=== PATIENT | female | born 1955 | race American Indian/Alaskan Native ===

== ENCOUNTER 2016-09-06 17:48 | Emergency (ER) | payer SELFPAY ==
[2016-09-06 18:36] LABS: Basophils % (Auto) 0.6 % (0.0-1.8); Eosinophils % (Auto) 1.7 % (0.0-4.3); Hematocrit 39.8 % (30.3-42.9); Mean Corpuscular HGB Conc 33 % (30-34); Mean Corpuscular Hemoglobin 27 pg (28-32); Mean Corpuscular Volume 84 fl (79-97); Platelet Count 233 K/mm3 (140-440); Red Blood Count 4.77 M/mm3 (3.65-5.03); Red Cell Distribution Width 14.4 % (13.2-15.2); White Blood Count 9.4 K/mm3 (4.5-11.0)
[2016-09-06 19:24] LABS: Alanine Aminotransferase 23 units/L (7-56); Albumin 3.6 g/dL (3.9-5); Albumin/Globulin Ratio 0.9 %; Alkaline Phosphatase 39 units/L (35-129); Anion Gap 18 mmol/L; Blood Urea Nitrogen 16 mg/dL (7-17); Calcium 9.1 mg/dL (8.4-10.2); Carbon Dioxide 23 mmol/L (22-30); Chloride 100.2 mmol/L (98-107); Glucose 103 mg/dL (65-100); Potassium 4.3 mmol/L (3.6-5.0); Sodium 137 mmol/L (137-145); Total Protein 7.6 g/dL (6.3-8.2)
--- NOTE | 2016-09-06 21:04 | Emergency Department Report ---
HPI - General Chief Complaint: Chest Pain Time Seen by Provider: 09/06/16 20:11 - HPI HPI: This is a 61-year-old Afro-[place] Irish female presents to the emergency department from [facility] for evaluation of a 2-3 day history of palpitations. The patient also has been having some pain to the left side of her neck and the top of the shoulder over the past 1-1.5 weeks. She denies any actual chest pain , shortness of breath, nausea, vomiting, fever or diaphoresis. Patient says that sometimes the neck and shoulder pain worsens with movement of her head and her primary care physician, Dr. Gee, thinks it could be musculoskeletal. However she was sent in for a "EKG and labs" as they do not do that at [facility]. The patient has a past medical history of arthritis, diabetes, hypertension, hepatitis C. No recent travel or sick contacts at home. ED Past Medical Hx - Past Medical History Previous Medical History?: Yes Hx Hypertension: Yes Hx Diabetes: Yes Hx Arthritis: Yes Hx Psychiatric Treatment: Yes (depression, Anxiety) Additional medical history: Hepatitis C - Surgical History Past Surgical History?: Yes Additional Surgical History: left ovary removed, Hx. of ETOH abuse - Social History Smoking Status: Current Every Day Smoker Substance Use Type: Prescribed ED Review of Systems ROS: Stated complaint: HEART PALPITATIONS,SHOULDER/CP Other details as noted in HPI Comment: All other systems reviewed and negative Constitutional: denies: chills, fever Eyes: denies: eye pain, eye discharge, vision change ENT: denies: ear pain, throat pain Respiratory: denies: cough, shortness of breath, wheezing Cardiovascular: palpitations. denies: edema Gastrointestinal: denies: abdominal pain, nausea, diarrhea Genitourinary: denies: urgency, dysuria, discharge Musculoskeletal: arthralgia. denies: joint swelling Skin: denies: rash, lesions Neurological: denies: headache, weakness, paresthesias Physical Exam - Physical Exam Vital Signs: Vital Signs 09/06/16 09/06/16 09/06/16 18:02 20:11 20:12 Temperature 97.9 F Pulse Rate 70 76 Respiratory 20 20 10 L Rate Blood Pressure 140/84 Blood Pressure [Left] O2 Sat by Pulse 100 100 Oximetry 06/01/17 06/01/17 06/01/17 20:20 20:24 20:30 Temperature 98.2 F Pulse Rate 74 79 75 Respiratory 12 11 L 10 L Rate Blood Pressure 131/78 133/74 Blood Pressure 127/70 [Left] O2 Sat by Pulse 99 98 100 Oximetry Physical Exam: GENERAL: The patient is well-developed well-nourished. HEENT: Normocephalic. Atraumatic. Extraocular motions are intact. Patient has moist mucous membranes. Pupils equal reactive to light bilaterally. NECK: Supple. Trachea is midline. CHEST/LUNGS: Clear to auscultation. There is no respiratory distress noted. HEART/CARDIOVASCULAR: Regular. There is no tachycardia. There is no gallop rub or murmur. ABDOMEN: Abdomen is soft, nontender. Patient has normal bowel sounds. There is no abdominal distention. SKIN: Skin is warm and dry. NEURO: The patient is awake, alert, and oriented. The patient is cooperative. The patient has no focal neurologic deficits. The patient has normal speech. MUSCULOSKELETAL: There is no tenderness or deformity. There is no limitation range of motion. There is no evidence of acute injury. ED Course Vital Signs 09/06/16 09/06/16 09/06/16 18:02 20:11 20:12 Temperature 97.9 F Pulse Rate 70 76 Respiratory 20 20 10 L Rate Blood Pressure 140/84 Blood Pressure [Left] O2 Sat by Pulse 100 100 Oximetry 09/06/16 09/06/16 09/06/16 20:20 20:24 20:30 Temperature 98.2 F Pulse Rate 74 79 75 Respiratory 12 11 L 10 L Rate Blood Pressure 131/78 133/74 Blood Pressure 127/70 [Left] O2 Sat by Pulse 99 98 100 Oximetry ED Medical Decision Making - Lab Data Result diagrams: 09/06/16 18:11 09/06/16 18:11 - EKG Data -: EKG Interpreted by [facility] EKG shows normal: sinus rhythm (sinus arrhythmia), axis (left axis deviation), intervals, QRS complexes (LVH), ST-T waves Rate: normal - EKG Data Interpretation: other (sinus arrhythmia, LVH) - Radiology Data Radiology results: report reviewed - Medical Decision Making 61-year-old female presents to the emergency department after she was sent over by her PCP for labs and EKG due to a few days of palpitations and some pain to the left side of the neck and shoulder. In the emergency department the patient does not currently have any of the pain and only intermittent palpitations. EKG does not show any signs of ST elevation KS or dysrhythmia. Her labs are mostly unremarkable including negative troponins 2. She has normal thyroid function. There are no joint abnormalities or sign of infection. She did have a elevated and equivocal d-dimer so a CT angiography of the chest was done. However this did not result in any pulmonary embolism, dissection or any acute process. The patient is been reevaluated multiple times for multiple hours and is feeling better. She did have one episode of anxiety that required some Ativan to be given but she also recently was diagnosed with an anxiety disorder and started on anxiety medications by her PCP. Vital signs stable throughout her ED course. Given that the fact that the patient does not have any discomfort currently, has had a negative workup thus far, the patient appears safe for discharge home. She'll be given a referral for cardiology to follow up regarding her palpitations and for a possible outpatient stress test. She will return to the ER with any worsening of her symptoms or any acute distress. She has a MALCOLM score less than 1. She is low on the heart score criteria. - Differential Diagnosis hypothyroidism, PE, [place] Critical Care Time: No Critical care attestation.: If time is entered above; I have spent that time in minutes in the direct care of this critically ill patient, excluding procedure time. ED Disposition Clinical Impression: Palpitations Disposition: DISCHARGED TO HOME OR SELFCARE Is pt being admited?: No Condition: Stable Instructions: Palpitations (ED) Additional Instructions: Please follow-up with your primary care doctor in the next few days. I've given you a referral for a local cripple cutter, Dr. Lechuga, to follow-up regarding her palpitations. Return to the emergency department with any chest pain, shortness of breath, worsening of her symptoms, or any acute distress. Referrals: AUSTIN WALKER MD [Primary Care Provider] - 3-5 Days ALEENA LECHUGA MD [Staff Physician] - 3-5 Days Time of Disposition: 23:54
[2016-09-06] MEDS ORDERED: NACL ONE (22:16)
[2016-09-06] MEDS ORDERED: ATIVAN ONE (22:20)
[2016-09-06] MEDS ORDERED: ATIVAN IV ONE (22:21)
[2016-09-06] MEDS ORDERED: NACL 0.9% 1000 ML 0 ML ONE (22:48)
--- NOTE | 2016-09-06 23:21 | Cat Scan Report ---
FINAL REPORT PROCEDURE: CT ANGIO CHEST TECHNIQUE: Computerized axial tomographic angiography of the chest and pulmonary arteries was performed after the IV injection of iodinated nonionic contrast. The image data was postprocessed using maximum intensity projection (MIP) and 2-dimensional multiplanar reformatted (MPR) techniques. The examination is specifically tailored to the evaluation of the pulmonary arteries per clinical request. HISTORY: Short of breath 786.09, chest pain 786.50, Palpitations, Elevated dimer COMPARISON: No prior studies are available for comparison. FINDINGS: Heart and pericardium: Heart size is normal. There is a small pericardial effusion.. Thoracic aorta: There is calcified plaque in the thoracic aorta. There is no dissection or aneurysm. 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 Pulmonary vasculature: Normal. No pulmonary emboli. Lymph nodes: No enlarged thoracic lymph nodes. Lungs: Lungs are clear and expanded. There are no infiltrates, effusions or pneumothoraces. There are fibrotic changes at the lung bases.. Pleural space: No effusion, thickening, or pneumothorax. Musculoskeletal structures: No significant abnormality. Upper abdominal structures: No significant abnormality. IMPRESSION: There is no pulmonary embolism. Heart size is normal. There is a small pericardial effusion.. There is calcified plaque in the thoracic aorta. There is no dissection or aneurysm. 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 Lungs are clear and expanded. There are no infiltrates, effusions or pneumothoraces. There are fibrotic changes at the lung bases.. .
[2016-09-06 23:59] VITALS: BP 138/81
== END 2016-09-07 00:04 | disposition home or self-care (01) ==
LOC: ED 17:48
DX: R00.2 Palpitations (principal); I10 Essential (primary) hypertension; E11.9 Type 2 diabetes mellitus without complications; M19.90 Unspecified osteoarthritis, unspecified site; F32.9 Major depressive disorder, single episode, unspecified; F41.9 Anxiety disorder, unspecified; Z86.19 Personal history of other infectious and parasitic diseases; F17.200 Nicotine dependence, unspecified, uncomplicated
CPT/HCPCS: 36415; 71275; 80053; 82962; 84443; 84484; 85025; 85379; 93005; 93010; 96374; 99285; J2060; Q9967; J7030

== ENCOUNTER 2019-08-10 19:04 | Inpatient (IN) | payer MEDICARE ==
--- NOTE | 2019-08-10 19:13 | Emergency Department Report ---
HPI - General Time Seen by Provider: 08/10/19 19:04 - HPI HPI: 64-year-old female presents to the emergency department from home via EMS as a code stroke. Last known well time was about 10:30 AM this morning. However this patient has been napping off and on throughout the day and the patient's family noticed some strokelike symptoms just prior to presentation and called 911. She presents with some right-sided weakness, slurred speech and what appears to be a right-sided facial droop. She has a past medical history of hypertension, diabetes and hepatitis C that was obtained from records from 2017. Patient did not receive anything in route with EMS. ED Past Medical Hx - Past Medical History Hx Hypertension: Yes Hx Diabetes: Yes Hx Arthritis: Yes Hx Psychiatric Treatment: Yes (depression, Anxiety) Additional medical history: Hepatitis C - Surgical History Additional Surgical History: left ovary removed, Hx. of ETOH abuse - Social History Smoking Status: Current Every Day Smoker Substance Use Type: Prescribed - Medications Home Medications: Home Medications Medication Instructions Recorded Confirmed Last Taken Type Unobtainable 08/10/19 08/10/19 Unknown History ED Review of Systems ROS: Stated complaint: POSS CVA Other details as noted in HPI Comment: Unobtainable due to pts medical conditions Constitutional: weakness Neurological: weakness ED Course - Consultations Consultation #1: 08/10/19 19:32 Patient was seen by the telemedicine neurologist, Dr. Hickey, immediately upon return from CT imaging. Due to the last known well time being sometime this morning the patient is not a TPA candidate. However she has a elevated NIH stroke scale and concern for a left hemispheric stroke so the patient will have stat CT angiography studies of the head and neck. ED Medical Decision Making - Lab Data Result diagrams: 08/10/19 19:15 08/10/19 19:15 - Radiology Data Radiology results: report reviewed CT HEAD WITHOUT CONTRAST INDICATION / CLINICAL INFORMATION: neuro deficits <6hrs or sx present upon awakening. Aphasia, right-sided weakness, right-sided facial droop. TECHNIQUE: All CT scans at this location are performed using CT dose reduction for ALARA by means of automated exposure control. COMPARISON: None available. FINDINGS: HEMORRHAGE: No evidence of intracranial hemorrhage or extra-axial fluid collection. EXTRA-AXIAL SPACES: Cortical sulci, sylvian fissures and basilar cisterns have an unremarkable appearance. VENTRICULAR SYSTEM: Persistence of the cava septum pellucidum and cavum therapy is incidentally noted. The ventricular system is of otherwise normal size and configuration. CEREBRAL PARENCHYMA: Periventricular and deep white matter lucency are noted in both cerebral hemispheres consistent with microvascular ischemic change. No additional areas of abnormal brain parenchymal attenuation are identified. There is no indication of recent infarction. No areas of encephalomalacia are identified. MIDLINE SHIFT OR HERNIATION: There is no mass effect. CEREBELLUM / BRAINSTEM: Brainstem and cerebellum have an unremarkable appearance. INTRACRANIAL VESSELS: Calcified atherosclerotic plaque is seen along the course of the cavernous segments of both internal carotid arteries. Similar findings are seen at the distal vertebral arteries. ORBITS: The patient's gaze is deviated towards the left. Orbits have an otherwise unremarkable appearance. SOFT TISSUES of HEAD: No significant abnormality. CALVARIUM: Evaluation of bone windows reveals no abnormalities. PARANASAL SINUSES / MASTOID AIR CELLS: Par anasal sinuses are free from inflammatory mucosal disease. Mastoid air cells are normally pneumatized. IMPRESSION: 1. No acute intracranial abnormality on CT head without contrast.. CTA head with intravenous contrast CLINICAL HISTORY: stroke TECHNIQUE: 1.25 mm thick contiguous axial scans were obtained from the skull base to the skull vertex during rapid bolus administration of intravenous contrast material. Multiplanar reconstructions were produced in the coronal and sagittal planes. In addition 3 plane MIP instructions were produced and reviewed for this report. The axial source images and reconstructed images were reviewed for this report. CONTRAST DOSE REPORT: Omnipaque 350: 100 ml administered intravenously. All CT scans at this location are performed using CT dose reduction for ALARA by means of automated exposure control. FINDINGS: Internal carotid arteries:Ossified atherosclerotic plaque is observed along the course of the cavernous segments of both internal carotid arteries. Mee, cavernous, opthalmic, clinoid and supraclinoid segments of the ICAs have an otherwise unremarkable appearance. Middle cerebral arteries: Bilaterally symmetrical M1 segments are demonstrated. No abnormalities are seen on evaluation of the insular or opercular branches of the middle cerebral arteries. Anterior cerebral arteries: No abnormalities are seen along the course of the A1 or A2 segments of the anterior cerebral arteries. Visualized pericallosal branches have an unremarkable appearance. Vertebral arteries: Left vertebral artery is dominant. Both vertebral arteries contribute to the basilar artery origin. Basilar artery: Basilar artery has an unremarkable appearance. Posterior cerebral arteries:No abnormalities. Dural sinuses: Dural venous sinuses are well demonstrated on this exam. There is no evidence of dural sinus thrombosis. IMPRESSION: No significant abnormalities identified on CTA head. CTA neck without and with intravenous contrast material CLINICAL HISTORY: stroke. A aphasia. Right-sided weakness and right facial droop. TECHNIQUE: Following acquisition of a timing bolus 0.625 mm thick contiguous axial scans were obtained from aortic arch to the skull base during rapid bolus intravenous contrast infusion. In addition to evaluation of axial source images multiplanar reconstructions were produced and reviewed for this report. 3 plane MIP reconstructions were produced and reviewed. Contrast dose report: Omnipaque 350: 100 mL distribution intravenously. FINDINGS: Thoracic aorta:No abnormalities are identified along the course of the thoracic aorta..The origins of the great vessels have an unremarkable appearance. Left common carotid artery origin and left subclavian artery have an unremarkable appearance. 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 Right carotid arter y:No abnormalities are seen along the course of the RCCA or along the cervical portions of the RANJIT. Calcified atherosclerotic plaque is seen at the right carotid bifurcation with no indication of stenosis. Left carotid artery: No abnormalities are noted along the course of the left common carotid artery or along the course of the cervical segments of the LICA. Calcified atherosclerotic plaque is present at the left carotid bifurcation. There is no associated stenosis. Posterior circulation: Left vertebral artery is dominant. There is no indication of stenosis along the course the vertebral arteries. The degree of stenosis, if any, is determined utilizing NASCET like criteria. In this case t here is no indication of hemodynamically significant stenosis at the carotid bifurcations or elsewhere. Evaluation of the nonvascular soft tissue structures reveal no abnormality. There is no indication of cervical lymphadenopathy. No abnormalities are seen along the course of the airway. Visualized portions of the parotid glands and the submandibular salivary glands have a normal appearance. Thyroid gland has a normal appearance. Evaluation of the lung apices reveals no evidence of lung nodule or infiltrate. Evaluation of the cervical spine is remarkable for widespread cervical spondylosis with loss of disc height, anterior osteophyte and posterior osteophyte formation noted at multiple levels. IMPRESSION: 1. 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 2. No indication of hemodynamically significant stenosis at the carotid bifurcations or elsewhere. - Medical Decision Making This patient presents to the emergency department with some dysarthria, right- sided facial droop and right-sided weakness. A code stroke was initiated the patient went straight back for a CT scan of the head without contrast. CT head did not show any acute bleed, ischemic changes, or any other acute process. She was seen by the telemedicine neurologist but the patient is outside of the window for TPA. She was sent right back for CT angiography of the head and neck which ultimately did not show any signs of a large vessel occlusion. Labs have been mostly unremarkable. Patient does have significant elevated blood pressure and has been given some IV antihypertensive medication. She was given a NIH stroke scale of 14 by the telemedicine neurologist. She will be admitted to the hospital for further evaluation and treatment and was accepted for admission by the hospitalist, Dr. Cho. Critical Care Time: Yes Critical care time in (mins) excluding proc time.: 35 Critical care attestation.: If time is entered above; I have spent that time in minutes in the direct care of this critically ill patient, excluding procedure time. Due to the immediate potential for life-threatening deterioration due to underlying neurologic condition, I spent 35 minutes of critical care time with the patient. Critical Care Time: 35 minutes ED Disposition Clinical Impression: Hypertensive urgency Stroke Qualifiers: CVA mechanism: unspecified Qualified Code(s): I63.9 - Cerebral infarction, unspecified Disposition: DC-09 OP ADMIT IP TO THIS HOSP Is pt being admited?: Yes Condition: Serious Referrals: PRIMARY CARE, [Primary Care Provider] - 3-5 Days Time of Disposition: 22:19
[2019-08-10 19:30] LABS: Basophils % (Auto) 0.4 % (0.0-1.8); Eosinophils % (Auto) 0.5 % (0.0-4.3); Hemoglobin 13.5 gm/dl (10.1-14.3); Lymphocytes # (Auto) 2.8 K/mm3 (1.2-5.4); Lymphocytes % (Auto) 31.4 % (13.4-35.0); Mean Corpuscular HGB Conc 33 % (30-34); Mean Corpuscular Volume 83 fl (79-97); Monocytes # (Auto) 0.5 K/mm3 (0.0-0.8); Monocytes % (Auto) 5.2 % (0.0-7.3); Platelet Count 267 K/mm3 (140-440); Red Blood Count 4.92 M/mm3 (3.65-5.03)
--- NOTE | 2019-08-10 19:30 | Cat Scan Report ---
CT HEAD WITHOUT CONTRAST INDICATION / CLINICAL INFORMATION: neuro deficits <6hrs or sx present upon awakening. Aphasia, right-sided weakness, right-sided facial droop. TECHNIQUE: All CT scans at this location are performed using CT dose reduction for ALARA by means of automated e xposure control. COMPARISON: None available. FINDINGS: HEMORRHAGE: No evidence of intracranial hemorrhage or extra-axial fluid collection. EXTRA-AXIAL SPACES: Cortical sulci, sylvian fissures and basilar cisterns have an unremarkable appear ance. VENTRICULAR SYSTEM: Persistence of the cava septum pellucidum and cavum therapy is incidentally noted . The ventricular system is of otherwise normal size and configuration. CEREBRAL PARENCHYMA: Periventricular and deep white matter lucency are noted in both cerebral hemisph eres consistent with microvascular ischemic change. No additional areas of abnormal brain parenchymal attenuation are identified. There is no indication of recent infarction. No areas of encephalomalaci a are identified. MIDLINE SHIFT OR HERNIATION: There is no mass effect. CEREBELLUM / BRAINSTEM: Brainstem and cerebellum have an unremarkable appearance. INTRACRANIAL VESSELS: Calcified atherosclerotic plaque is seen along the course of the cavernous segm ents of both internal carotid arteries. Similar findings are seen at the distal vertebral arteries. ORBITS: The patient's gaze is deviated towards the left. Orbits have an otherwise unremarkable appear ance. SOFT TISSUES of HEAD: No significant abnormality. CALVARIUM: Evaluation of bone windows reveals no abnormalities. PARANASAL SINUSES / MASTOID AIR CELLS: Paranasal sinuses are free from inflammatory mucosal disease. Mastoid air cells are normally pneumatized. IMPRESSION: 1. No acute intracranial abnormality on CT head without contrast.. Code stroke: I called a report of this study to Dr. Shetty of the [facility] em ergency department at about 1821 hours Central standard time. Signer Name: Amado Lindsay MD Signed: 08/10/2019 7:25 PM Workstation Name: [id number]
--- NOTE | 2019-08-10 19:33 | Emergency Department Report ---
ED Neuro Deficit HPI - General Chief Complaint: Neuro Symptoms/Deficit Stated Complaint: POSS CVA Time Seen by Provider: 08/10/19 19:04 - History of Present Illness Initial Comments: [facility] Tele[facility]rology [facility] Date of Service: 08/10/2019 19:07:47 Impression: Left Hemispheric Infarct MCA Distribution Infarct Comments/Sign-Out: -Patient is not a candidate for thrombolytic therapy as time LKW was > 4.5 hours. Recommend evaluation for LVO that could be amenable to thrombectomy. Metrics: Last Known Well: 08/10/2019 10:30:00 [facility] Notification Time: 08/10/2019 19:07:14 Arrival Time: 08/10/2019 19:04:00 Stamp Time: 08/10/2019 19:07:47 Time First Login Attempt: 08/10/2019 19:09:29 Video Start Time: 08/10/2019 19:09:29 Symptoms: dysarthria. R sided weakness NIHSS Start Assessment Time: 08/10/2019 19:15:00 Patient is not a candidate for tPA. Patient was not deemed candidate for tPA thrombolytics because of Last Well Known Above 4.5 Hours. Video End Time: 08/10/2019 19:26:37 CT head showed no acute hemorrhage or acute core infarct. Clinical Presentation is Suggestive of Large Vessel Occlusive Disease, Recommendations are as Follows CTA Head and Neck. ED Physician notified of diagnostic impression and management plan on 08/10/2019 19:27:04 Our recommendations are outlined below. Recommendations: Activate Stroke Protocol Admission/Order Set Stroke/Telemetry Floor Neuro Checks Bedside Swallow Eval DVT Prophylaxis IV Fluids, Normal Saline Head of Bed 30 Degrees Euglycemia and Avoid Hyperthermia (PRN Acetaminophen) No tPA. Give ASA. STAT CTA head/neck r/o LVO. If L ICA or MCA LVO will need referral/transfer for thrombectomy. Permissive HTN 140-200 range systolic is OK. If no LVO admission for stroke evaluation (Brain MRI, Echo, Tele, A1c, Lipids, UDS). Sign Out: Discussed with Emergency Department Provider History of Present Illness: Patient is a 64 year old Female. Patient was brought by EMS for symptoms of dysarthria. R sided weakness LKW 10:30, this was the last time anyone spoke with her. She napped most of the day. Family thinks she was up after that, but last time anyone spoke to her was 10:30. Family later found her in bathroom with slurred speech and facial droop, unable to walk out of bathroom, called EMS. EMS reported R facial droop, dysarthria, R sided weakness has worsened en route. BP 200/100. BG 150. Examination: 1A: Level of Consciousness - Alert; keenly responsive + 0 1B: Ask Month and Age - Could Not Answer Either Question Correctly + 2 1C: Blink Eyes & Squeeze Hands - Performs Both Tasks + 0 2: Test Horizontal Extraocular Movements - Partial Gaze Palsy: Can Be Overcome + 1 3: Test Visual Lovett - Partial Hemianopia + 1 4: Test Facial Palsy (Use Grimace if Obtunded) - Partial paralysis (lower face) + 2 5A: Test Left Arm Motor Drift - No Drift for 10 Seconds + 0 5B: Test Right Arm Motor Drift - Drift, hits bed + 2 6A: Test Left Leg Motor Drift - No Drift for 5 Seconds + 0 6B: Test Right Leg Motor Drift - No Effort Against Franklin + 3 7: Test Limb Ataxia (FNF/Heel-Milner) - No Ataxia + 0 8: Test Sensation - Mild-Moderate Loss: Less Sharp/More Dull + 1 9: Test Language/Aphasia - Mild-Moderate Aphasia: Some Obvious Changes, Without Significant Limitation + 1 10: Test Dysarthria - Mild-Moderate Dysarthria: Slurring but can be understood + 1 11: Test Extinction/Inattention - No abnormality + 0 NIHSS Score: 14 Patient/Family was informed the Neurology Consult would happen via TeleHealth consult by way of interactive audio and video telecommunications and consented to receiving care in this manner. Due to the immediate potential for life-threatening deterioration due to underlying acute neurologic illness, I spent 35 minutes providing critical care. This time includes time for face to face visit via telemedicine, review of m edical records, imaging studies and discussion of findings with providers, the patient and/or family. Dr John Hickey [facility] Case [id number] - Related Data Allergies/Adverse Reactions: Allergies Allergy/AdvReac Type Severity Reaction Status Date / Time acetaminophen Allergy Shortness Verified 09/06/16 18:02 of Breath Penicillins Allergy Rash Verified 09/06/16 18:01 ED Review of Systems ROS: Stated complaint: POSS CVA Other details as noted in HPI Constitutional: weakness Neurological: weakness ED Past Medical Hx - Past Medical History Hx Hypertension: Yes Hx Diabetes: Yes Hx Arthritis: Yes Hx Psychiatric Treatment: Yes (depression, Anxiety) Additional medical history: Hepatitis C - Surgical History Additional Surgical History: left ovary removed, Hx. of ETOH abuse - Social History Smoking Status: Current Every Day Smoker Substance Use Type: Prescribed ED Neuro Physical Exam - General Suspected Stroke: Yes - NIHSS Assessment Interval: Baseline 1a. Level of Consciousness: alert/keenly responsive 1b. LOC Questions: answers no questions correctly 1c. LOC Commands: performs tasks correctly 2. Best Gaze: partial gaze palsy 3. Visual: partial hemianopia 4. Facial Palsy: partial paralysis 5b. Motor Arm Right: some gravity effort 5a. Motor Arm Left: no drift 6a. Motor Leg Left: no drift 6b. Motor Leg Right: no gravity effort 7. Limb Ataxia: absent 8. Sensory: mild/moderate sensory loss 9. Best Language: mild/moderate aphasia 10. Dysarthria: mild/moderate dysarthria 11. Extinction/Inattention: no abnormality Total Score: 14 Stroke Severity: Moderate Stroke - Lab Data Result diagrams: 08/10/19 19:15 Lab Results 08/10/19 Range/Units 19:15 WBC 9.0 (4.5-11.0) K/mm3 RBC 4.92 (3.65-5.03) M/mm3 Hgb 13.5 (10.1-14.3) gm/dl Hct 41.0 (30.3-42.9) % MCV 83 (79-97) fl MCH 27 L (28-32) pg MCHC 33 (30-34) % RDW 15.0 (13.2-15.2) % Plt Count 267 (140-440) K/mm3 Lymph % (Auto) 31.4 (13.4-35.0) % [place] % (Auto) 5.2 (0.0-7.3) % Eos % (Auto) 0.5 (0.0-4.3) % Baso % (Auto) 0.4 (0.0-1.8) % Lymph # 2.8 (1.2-5.4) K/mm3 [place] # 0.5 (0.0-0.8) K/mm3 Eos # 0.0 (0.0-0.4) K/mm3 Baso # 0.0 (0.0-0.1) K/mm3 Seg Neutrophils % 62.5 (40.0-70.0) % Seg Neutrophils # 5.6 (1.8-7.7) K/mm3 Critical care attestation.: If time is entered above; I have spent that time in minutes in the direct care of this critically ill patient, excluding procedure time. ED Disposition Clinical Impression: Stroke Disposition: - OP ADMIT IP TO THIS HOSP Is pt being admited?: Yes Condition: Stable Referrals: PRIMARY CARE, [Primary Care Provider] - 3-5 Days
[2019-08-10 19:46] LABS: Creatine Kinase MB 1.5 ng/mL (0.0-4.0)
[2019-08-10 19:48] LABS: Alanine Aminotransferase 17 units/L (7-56); Albumin 2.8 g/dL (3.9-5); BUN/Creatinine Ratio 15; Blood Urea Nitrogen 15 mg/dL (7-17); Hemolysis Index 5
[2019-08-10 20:00] LABS: INR 0.95 (0.87-1.13); Partial Thromboplastin Time 24.5 Sec. (24.2-36.6)
[2019-08-10 20:01] LABS: Thrombin Time 18.6 Sec. (15.1-19.6)
--- NOTE | 2019-08-10 21:13 | Cat Scan Report ---
CTA head with intravenous contrast CLINICAL HISTORY: stroke TECHNIQUE: 1.25 mm thick contiguous axial scans were obtained from the skull base to the skull vertex during rap id bolus administration of intravenous contrast material. Multiplanar reconstructions were produced i n the coronal and sagittal planes. In addition 3 plane MIP instructions were produced and reviewed fo r this report. The axial source images and reconstructed images were reviewed for this report. CONTRAST DOSE REPORT: Omnipaque 350: 100 ml administered intravenously. All CT scans at this location are performed using CT dose reduction for ALARA by means of automated e xposure control. FINDINGS: Internal carotid arteries:Ossified atherosclerotic plaque is observed along the course of the caverno us segments of both internal carotid arteries. Mee, cavernous, opthalmic, clinoid and supraclinoid segments of the ICAs have an otherwise unremarkable appearance. Middle cerebral arteries: Bilaterally symmetrical M1 segments are demonstrated. No abnormalities are seen on evaluation of the insular or opercular branches of the middle cerebral arteries. Anterior cerebral arteries: No abnormalities are seen along the course of the A1 or A2 segments of th e anterior cerebral arteries. Visualized pericallosal branches have an unremarkable appearance. Vertebral arteries: Left vertebral artery is dominant. Both vertebral arteries contribute to the basi lar artery origin. Basilar artery: Basilar artery has an unremarkable appearance. Posterior cerebral arteries:No abnormalities. Dural sinuses: Dural venous sinuses are well demonstrated on this exam. There is no evidence of dural sinus thrombosis. IMPRESSION: No significant abnormalities identified on CTA head. Signer Name: Amado Lindsay MD Signed: 08/10/2019 9:08 PM Workstation Name: [id number]
[2019-08-10] MEDS ORDERED: hydrALAZINE 20 MG/1 ML INJ IV ONE ×2 (21:22→22:14)
--- NOTE | 2019-08-10 21:22 | Cat Scan Report ---
CTA neck without and with intravenous contrast material CLINICAL HISTORY: stroke. A aphasia. Right-sided weakness and right facial droop. TECHNIQUE: Following acquisition of a timing bolus 0.625 mm thick contiguous axial scans were obtained from aort ic arch to the skull base during rapid bolus intravenous contrast infusion. In addition to evaluation of axial source images multiplanar reconstructions were produced and reviewed for this report. 3 daksha ne MIP reconstructions were produced and reviewed. Contrast dose report: Omnipaque 350: 100 mL distribution intravenously. FINDINGS: Thoracic aorta:No abnormalities are identified along the course of the thoracic aorta..The origins of the great vessels have an unremarkable appearance. Left common carotid artery origin and left subcla vian artery have an unremarkable appearance. 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 Right carotid artery:No abnormalities are seen along the course of the RCCA or along the cervical por tions of the RANJIT. Calcified atherosclerotic plaque is seen at the right carotid bifurcation with no indication of stenosis. Left carotid artery: No abnormalities are noted along the course of the left common carotid artery or along the course of the cervical segments of the LICA. Calcified atherosclerotic plaque is present a t the left carotid bifurcation. There is no associated stenosis. Posterior circulation: Left vertebral artery is dominant. There is no indication of stenosis along th e course the vertebral arteries. The degree of stenosis, if any, is determined utilizing NASCET like criteria. In this case there is no indication of hemodynamically significant stenosis at the carotid bifurcations or elsewhere. Evaluation of the nonvascular soft tissue structures reveal no abnormality. There is no indication of cervical lymphadenopathy. No abnormalities are seen along the course of the airway. Visualized porti ons of the parotid glands and the submandibular salivary glands have a normal appearance. Thyroid gla nd has a normal appearance. Evaluation of the lung apices reveals no evidence of lung nodule or infil trate. Evaluation of the cervical spine is remarkable for widespread cervical spondylosis with loss of disc height, anterior osteophyte and posterior osteophyte formation noted at multiple levels. IMPRESSION: 1. 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 2. No indication of hemodynamically significant stenosis at the carotid bifurcations or elsewhere. Contrast dose report: Omnipaque 300: ml, administered intravenously All CT examinations performed at this facility utilize modulated dose reduction, iterative reconstruc tion or weight-based dosing, as appropriate, to obtain a radiation dose which is as low as can reason ably be achieved. Signer Name: Amado Lindsay MD Signed: 08/10/2019 9:18 PM Workstation Name: [id number]
[2019-08-10] MEDS ORDERED: hydrALAZINE 20 MG/1 ML INJ ONE (21:24)
[2019-08-10] MEDS ORDERED: ONDANSETRON 4 MG/2 ML INJ IV PRN (22:24)
--- NOTE | 2019-08-10 22:24 | History and Physical Report ---
History of Present Illness History of present illness: 64-year-old woman with a history of hypertension, diabetes, anxiety, depression comes emergency room for evaluation. The patient complained of right side weakness, slurred speech and twisting of her face. She has not taken any antihypertensive in the last 4 months or more. The patient came to the emergency room, she was outside the window for TPA. Patient will be admitted for acute CVA Review Of Systems: Constitutional: no weight loss, fever, chills Ears, eyes, nose, mouth and throat: no nasal congestion, no nasal discharge, no sinus pressure, blurry vision, diplopia Neck: No neck pain or rigidity. Cardiovascular: No palpitations, chest pain Respiratory: No shortness of breath, cough Gastrointestinal: No hematochezia Genitourinary : no dysuria, frequency Musculoskeletal: no muscle ache , joint pain Integumentary: no rash, no pruritis Neurological: no parathesia Endocrine: no cold or heat intolerance, no polyuria or polydipsia Hematologic/Lymphatic: no easy bruising, no easy bleeding, no gland swelling Allergic/Immunologic: no urticaria, no angioedema. PAST MEDICAL HISTORY: hypertension, diabetes, anxiety, depression PAST SURGICAL HISTORY: Oophorectomy SOCIAL HISTORY: Denies alcohol, +tobacco, no drugs FAMILY HISTORY: Hypertension Medications and Allergies Allergies Allergy/AdvReac Type Severity Reaction Status Date / Time acetaminophen Allergy Shortness Verified 09/06/16 18:02 of Breath Penicillins Allergy Rash Verified 09/06/16 18:01 Home Medications Medication Instructions Recorded Confirmed Last Taken Type Unobtainable 08/10/19 08/10/19 Unknown History Exam - Physical Exam Narrative exam: Gen. appearance: Patient lying in bed, no apparent distress HEENT: Normocephalic, atraumatic, pupils equally round and reactive to light, extraocular movement intact, and no sclericterus,. No JVD or thyromegaly or nodule,neck supple, no carotid bruit ,mucous membranes moist, no exudate or er ythema Heart: S1, S2, regular rate and rhythm Lungs: Clear bilaterally, breathing comfortable Abdomen: Positive bowel sounds, nontender, nondistended, no organomegaly Extremity: no edema, cyanosis, clubbing Skin: No rash, nodules, warm, dry Neuro: speech is slurred, otherwise cranial nerves intact, right upper and lower extremity 1/5, no sensory intact - Constitutional Vitals: Temp Pulse Resp BP Pulse Ox 97.9 F 70 23 201/107 100 08/10/19 19:36 08/10/19 22:15 08/10/19 22:10 08/10/19 22:15 08/10/19 22:10 Results - Labs CBC & Chem 7: 08/10/19 19:15 08/10/19 19:15 Labs: Abnormal lab results 08/10/19 08/10/19 Range/Units 19:15 19:15 MCH 27 L (28-32) pg Glucose 177 H (65-100) mg/dL Albumin 2.8 L (3.9-5) g/dL - Imaging and Cardiology CT Scan - head: report reviewed Assessment and Plan CTA head and neck reviewed Assessment Acute CVA Obtain MRI of the head, echo Start Plavix, statin IV hydralazine as needed for blood pressure control Consult neurology, physical and Occupational Therapy Hypertensive urgency Allow permissive hypertension, IV hydralazine for blood pressure control Diabetes Check fingersticks, start sliding scale Anxiety/depression, stable DVT prophylaxis
[2019-08-10] MEDS ORDERED: hydrALAZINE 20 MG/1 ML INJ IV PRN (22:29)
[2019-08-11 05:33] LABS: Amphetamine Screen,Urine PRESUMPTIVE NEGATIVE; Benzodiazepines Screen,Urine PRESUMPTIVE NEGATIVE; Cannabinoid Screen,Urine PRESUMPTIVE NEGATIVE; Cocaine Screen,Urine PRESUMPTIVE NEGATIVE; Methadone Screen,Urine PRESUMPTIVE NEGATIVE; Opiate Screen,Urine PRESUMPTIVE NEGATIVE
[2019-08-11 05:35] LABS: Bacteria,Urine 1+ /HPF (Negative); Bilirubin,Urine NEG (Negative); Blood,Urine NEG (Negative); Color,Urine Yellow (Yellow); Mucus,Urine FEW /HPF; Urobilinogen,Urine < 2.0 mg/dL (<2.0)
[2019-08-11 05:37] LABS: Protein,Urine >500 mg/dL (Negative)
[2019-08-11 06:08] LABS: Chol/HDL Ratio 5.53 %
[2019-08-11] MEDS ORDERED: ASPIRIN 325 MG TAB PO SCH (10:00)
--- NOTE | 2019-08-11 10:39 | Magnetic Resonance Report ---
MRI BRAIN WITHOUT CONTRAST INDICATION / CLINICAL INFORMATION: MAIN: stroke, lt sided weakness and slurred speech. TECHNIQUE: Multisequence, multiplanar images were obtained. COMPARISON: CT head dated 08/10/2019 FINDINGS: CEREBRAL and CEREBELLAR HEMISPHERES: Diffusion restriction measuring up to 2.4 x 2.2 cm in axial plan e in the left basal ganglia/gangliocapsular region is identified consistent with subacute ischemia. N o other areas of diffusion restriction are identified. Mild nonspecific chronic white matter changes are identified consistent with chronic microangiopathy. No obvious mass on noncontrast MR. No chronic infarct. No acute hemorrhage. No extra-axial fluid collection. VENTRICLES: Normal in size and configuration for age. VISUALIZED ORBITS: No significant abnormality. VISUALIZED PARANASAL SINUSES: No significant abnormality. ADDITIONAL FINDINGS: None. IMPRESSION: 2.4 x 2.2 cm per sec acute ischemia in the left basal ganglia region as described. No evidence for he morrhage or mass effect. Mild nonspecific chronic white matter changes. Signer Name: Anselmo Deleon Jr, MD Signed: 08/11/2019 10:34 AM Workstation Name: [id number]
--- NOTE | 2019-08-11 10:55 | Progress Note ---
Assessment and Plan Assessment and plan: Acute ischemic stroke with right sided weakness Cont Plavix, statin IV hydralazine as needed for blood pressure control Consulted neurology, patient seen by Dr. Chun Physical and Occupational Therapy consulted Hypertensive urgency Start Norvasc IV hydralazine prn for blood pressure control Diabetes mellitus type 2 Check fingersticks, start sliding scale Anxiety/depression, stable DVT prophylaxis History Interval history: Right sided weakness Hospitalist Physical - Physical exam Narrative exam: GEN: Not in acute distress, obese, lying in bed HEENT: Normocephalic, atraumatic, Neck: supple, No JVD Lungs: Clear to auscultation bilaterally, heart;S1 and S2 reg, no murmurs, rubs or gallop Abd:soft, non tender, non distended, normal bowel sounds, Ext: No edema, no clubbing, no cyanosis, Neuro: Awake,alert, right sided weakness, dysarthria, Psych: Calm. appropriate - Constitutional Vitals: Temp Pulse Resp BP Pulse Ox 97.0 F L 90 20 141/80 99 08/11/19 08:28 08/11/19 09:16 08/11/19 08:28 08/11/19 08:28 08/11/19 08:28 Results - Labs CBC & Chem 7: 08/10/19 19:15 08/10/19 19:15 Labs: Laboratory Last Values WBC 9.0 K/mm3 (4.5-11.0) 08/10/19 19:15 RBC 4.92 M/mm3 (3.65-5.03) 08/10/19 19:15 Hgb 13.5 gm/dl (10.1-14.3) 08/10/19 19:15 Hct 41.0 % (30.3-42.9) 08/10/19 19:15 MCV 83 fl (79-97) 08/10/19 19:15 MCH 27 pg (28-32) L 08/10/19 19:15 MCHC 33 % (30-34) 08/10/19 19:15 RDW 15.0 % (13.2-15.2) 08/10/19 19:15 Plt Count 267 K/mm3 (140-440) 08/10/19 19:15 Lymph % (Auto) 31.4 % (13.4-35.0) 08/10/19 19:15 [place] % (Auto) 5.2 % (0.0-7.3) 08/10/19 19:15 Eos % (Auto) 0.5 % (0.0-4.3) 08/10/19 19:15 Baso % (Auto) 0.4 % (0.0-1.8) 08/10/19 19:15 Lymph # 2.8 K/mm3 (1.2-5.4) 08/10/19 19:15 [place] # 0.5 K/mm3 (0.0-0.8) 08/10/19 19:15 Eos # 0.0 K/mm3 (0.0-0.4) 08/10/19 19:15 Baso # 0.0 K/mm3 (0.0-0.1) 08/10/19 19:15 Seg Neutrophils % 62.5 % (40.0-70.0) 08/10/19 19:15 Seg Neutrophils # 5.6 K/mm3 (1.8-7.7) 08/10/19 19:15 PT 12.8 Sec. (12.2-14.9) 08/10/19 19:15 INR 0.95 (0.87-1.13) 08/10/19 19:15 APTT 24.5 Sec. (24.2-36.6) 08/10/19 19:15 Thrombin Time 18.6 Sec. (15.1-19.6) 08/10/19 19:15 Sodium 140 mmol/L (137-145) 08/10/19 19:15 Potassium 3.9 mmol/L (3.6-5.0) 08/10/19 19:15 Chloride 105.4 mmol/L (98-107) 08/10/19 19:15 Carbon Dioxide 22 mmol/L (22-30) 08/10/19 19:15 Anion Gap 17 mmol/L 08/10/19 19:15 BUN 15 mg/dL (7-17) 08/10/19 19:15 Creatinine 1.0 mg/dL (0.7-1.2) 08/10/19 19:15 Estimated GFR > 60 ml/min 08/10/19 19:15 BUN/Creatinine Ratio 15 % 08/10/19 19:15 Glucose 177 mg/dL (65-100) H 08/10/19 19:15 Calcium 9.0 mg/dL (8.4-10.2) 08/10/19 19:15 Total Bilirubin 0.30 mg/dL (0.1-1.2) 08/10/19 19:15 AST 26 units/L (5-40) 08/10/19 19:15 ALT 17 units/L (7-56) 08/10/19 19:15 Alkaline Phosphatase 56 units/L (35-129) 08/10/19 19:15 Ammonia 28.0 umol/L (25-60) 08/10/19 19:15 Total Creatine Kinase 87 units/L (30-135) 08/10/19 19:15 CK-MB (CK-2) 1.5 ng/mL (0.0-4.0) 08/10/19 19:15 CK-MB (CK-2) Rel Index 1.7 (0-4) 08/10/19 19:15 Troponin T < 0.010 ng/mL (0.00-0.029) 08/10/19 19:15 Total Protein 7.5 g/dL (6.3-8.2) 08/10/19 19:15 Albumin 2.8 g/dL (3.9-5) L 08/10/19 19:15 Albumin/Globulin Ratio 0.6 % 08/10/19 19:15 Triglycerides 89 mg/dL (2-149) 08/11/19 05:17 Cholesterol 238 mg/dL (50-199) H 08/11/19 05:17 LDL Cholesterol Direct 188 mg/dL (50-130) H 08/11/19 05:17 HDL Cholesterol 43 mg/dL (40-59) 08/11/19 05:17 Cholesterol/HDL Ratio 5.53 % 08/11/19 05:17 TSH 2.390 mlU/mL (0.270-4.200) 08/10/19 19:15 Urine Color Yellow (Yellow) 08/10/19 04:30 Urine Turbidity Clear (Clear) 08/10/19 04:30 Urine pH 7.0 (5.0-7.0) 08/10/19 04:30 Ur Specific [place] 1.049 (1.003-1.030) H 08/10/19 04:30 Urine Protein >500 mg/dL (Negative) 08/10/19 04:30 Urine Glucose (UA) Neg mg/dL (Negative) 08/10/19 04:30 Urine Ketones Tr mg/dL (Negative) 08/10/19 04:30 Urine Blood Neg (Negative) 08/10/19 04:30 Urine Nitrite Neg (Negative) 08/10/19 04:30 Urine Bilirubin Neg (Negative) 08/10/19 04:30 Urine Urobilinogen < 2.0 mg/dL (<2.0) 08/10/19 04:30 Ur Leukocyte Esterase Neg (Negative) 08/10/19 04:30 Urine WBC (Auto) 3.0 /HPF (0.0-6.0) 08/10/19 04:30 Urine RBC (Auto) 6.0 /HPF (0.0-6.0) 08/10/19 04:30 U Epithel Cells (Auto) 2.0 /HPF (0-13.0) 08/10/19 04:30 Urine Bacteria (Auto) 1+ /HPF (Negative) 08/10/19 04:30 Urine Mucus Few /HPF 08/10/19 04:30 Urine Opiates Screen Presumptive negative 08/10/19 04:30 Urine Methadone Screen Presumptive negative 08/10/19 04:30 Ur Barbiturates Screen Presumptive negative 08/10/19 04:30 Ur Phencyclidine Scrn Presumptive negative 08/10/19 04:30 Ur Amphetamines Screen Presumptive negative 08/10/19 04:30 U Benzodiazepines Scrn Presumptive negative 08/10/19 04:30 Urine Cocaine Screen Presumptive negative 08/10/19 04:30 U Marijuana (THC) Screen Presumptive negative 08/10/19 04:30 Drugs of Abuse Note Disclamer 08/10/19 04:30 Plasma/Serum Alcohol < 0.01 % (0-0.07) 08/10/19 19:15 Blood Type AB POSITIVE 08/10/19 19:15 Antibody Screen Negative 08/10/19 19:15 [place]/IV: Voiding Method Bedpan IV Catheter Type [Left Forearm Peripheral IV ] Active Medications - Current Medications Current Medications: Generic Name Dose Route Start Last Admin Trade Name Freq PRN Reason Stop Dose Admin Amlodipine Besylate 5 mg 08/11/19 10:00 Amlodipine PO QDAY JASBIR Atorvastatin Calcium 80 mg 08/11/19 22:00 Lipitor PO QHS JASBIR Bisacodyl 10 mg 08/10/19 22:24 Dulcolax MD QDAY PRN Constipation Clopidogrel Bisulfate 75 mg 08/11/19 10:00 Plavix PO DAILY JASBIR Enoxaparin Sodium 40 mg 08/11/19 10:00 Enoxaparin SUB-Q QAM JASBIR Hydralazine HCl 10 mg 08/10/19 22:29 08/11/19 04:20 Apresoline IV 10 mg Q6H PRN Administration Hypertension Hydralazine HCl 50 mg 08/11/19 09:00 Apresoline PO Q8HR JASBIR Ondansetron HCl 4 mg 08/10/19 22:24 Zofran IV Q8H PRN Nausea And Vomiting Sodium Chloride 10 ml 08/10/19 22:24 Sodium Chloride Flush Syringe 10 Ml IV PRN PRN LINE FLUSH
[2019-08-11] MEDS: ENOXAPARIN 40 MG/0.4 ML INJ SUB-Q SCH (11:47)
[2019-08-11] MEDS: amLODIPine 5 MG TAB PO SCH (11:47)
[2019-08-11] MEDS: CLOPIDOGREL 75 MG TAB PO SCH (11:47)
[2019-08-11] MEDS: hydrALAZINE 25 MG TAB PO SCH ×3 (11:47→21:36)
--- NOTE | 2019-08-11 13:04 | Progress Note ---
Subjective Date of service: 08/11/19 Interval history: MRI does show acute ischemic stroke small vessel disease from HTN advise medical therapy plan to assess the MRA with Dr. Deleon Objective - Vital Sign Vital Signs - 12hr 08/11/19 08/11/19 08/11/19 04:05 04:20 08:28 Temperature 98.0 F 97.0 F L Pulse Rate 101 H 79 117 H Respiratory 20 20 Rate Blood Pressure 192/99 192/100 141/80 O2 Sat by Pulse 93 99 Oximetry 08/11/19 08/11/19 09:16 11:35 Temperature 98.9 F Pulse Rate 90 98 H Respiratory 20 Rate Blood Pressure 170/97 O2 Sat by Pulse 100 Oximetry - Laboratory Findings CBC and BMP: 08/10/19 19:15 08/10/19 19:15 Abnormal Lab Findings: Abnormal Labs 08/10/19 08/10/19 08/10/19 04:30 19:15 19:15 MCH 27 L Glucose 177 H Albumin 2.8 L Cholesterol LDL Cholesterol Direct Ur Specific [place] 1.049 H 08/11/19 05:17 MCH Glucose Albumin Cholesterol 238 H LDL Cholesterol Direct 188 H Ur Specific [place]
--- NOTE | 2019-08-11 13:41 | Consultation ---
History of Present Illness - Reason for Consult Consult date: 08/11/19 - History of Present Illness did go back over the CTA of head and neck with Dr. Pancho leong are no surgical lesions the main body of the left MCA is normal that suggests the stroke is from small vessel medial lenticulostriate branch therefore same course of therapy recommended Medications and Allergies Allergies Allergy/AdvReac Type Severity Reaction Status Date / Time acetaminophen Allergy Shortness Verified 09/06/16 18:02 of Breath Penicillins Allergy Rash Verified 09/06/16 18:01 Home Medications Medication Instructions Recorded Confirmed Last Taken Type Aspirin 325 mg PO QDAY 08/11/19 08/11/19 Unknown History Loratadine [Claritin] 10 mg PO QDAY 08/11/19 08/11/19 Unknown History Active Meds: Active Medications Amlodipine Besylate (Amlodipine) 5 mg PO QDAY [facility] Last Admin: 08/11/19 11:47 Dose: 5 mg Documented by: Atorvastatin Calcium (Lipitor) 80 mg PO QHS [facility] Bisacodyl (Dulcolax) 10 mg ID QDAY PRN PRN Reason: Constipation Clopidogrel Bisulfate (Plavix) 75 mg PO DAILY [facility] Last Admin: 08/11/19 11:47 Dose: 75 mg Documented by: Enoxaparin Sodium (Enoxaparin) 40 mg SUB-Q QAM [facility] Last Admin: 08/11/19 11:47 Dose: 40 mg Documented by: Hydralazine HCl (Apresoline) 10 mg IV Q6H PRN PRN Reason: Hypertension Last Admin: 08/11/19 04:20 Dose: 10 mg Documented by: Hydralazine HCl (Apresoline) 50 mg PO Q8HR [facility] Last Admin: 08/11/19 13:08 Dose: Not Given Documented by: Ondansetron HCl (Zofran) 4 mg IV Q8H PRN PRN Reason: Nausea And Vomiting Sodium Chloride (Sodium Chloride Flush Syringe 10 Ml) 10 ml IV PRN PRN PRN Reason: LINE FLUSH Exam - Constitutional Vitals: Temp Pulse Resp BP Pulse Ox 98.9 F 98 H 20 170/97 100 08/11/19 11:35 08/11/19 11:35 08/11/19 11:35 08/11/19 11:35 08/11/19 11:35 Results - Labs CBC & Chem 7: 08/10/19 19:15 08/10/19 19:15 Labs: Abnormal lab results 08/10/19 08/10/19 08/10/19 Range/Units 04:30 19:15 19:15 MCH 27 L (28-32) pg Glucose 177 H (65-100) mg/dL Albumin 2.8 L (3.9-5) g/dL Cholesterol (50-199) mg/dL LDL Cholesterol Direct (50-130) mg/dL Ur Specific [place] 1.049 H (1.003-1.030) 08/11/19 Range/Units 05:17 MCH (28-32) pg Glucose (65-100) mg/dL Albumin (3.9-5) g/dL Cholesterol 238 H (50-199) mg/dL LDL Cholesterol Direct 188 H (50-130) mg/dL Ur Specific [place] (1.003-1.030)
--- NOTE | 2019-08-11 18:08 | Consultation ---
HISTORY OF PRESENT ILLNESS: This 64-year-old black female that presented to the Emergency Room of [facility], initially presented to the Emergency Room on 08/10/2019. The patient had presented with acute onset of speech difficulty, speech arrest, right-sided weakness. Initial workup was done and she had a CT scan that I was able to review, done at time of admission and the patient had evidence of no acute intracranial abnormalities. There were minimal changes in the deep white matter of both hemispheres suggestive of a prior history of small vessel disease. There was no acute bleed and/or other changes. Of note is the patient's blood pressure was markedly elevated at 192/100. She is felt to have hypertensive ischemic stroke. My examination at this time reveals a blood pressure 170/97, pulse rate is 80, respirations 18, temperature is 98 degrees. She is completely aphasic, not able to speak. She cannot move her right arm. She has a left gaze preference. The patient is fully conscious, does not move the right arm or right leg or right face. She has a dense hemiparesis of the right side. I have reviewed her MRI scan. It shows a large ischemic infarct ventricular ____ branches, evidence of probably one of the large medial branches of the lenticulostriate of the middle cerebral artery, medial branch, distal middle cerebral artery territory is intact. My impression at this point is that this is a hypertensive stroke. I plan to review over the MRI with Dr. Deleon for the reports and at this point medical therapy, speech therapy to assess for swallowing. This is a large infarct, I would expect her to have some difficulty with swallowing, which should be monitored closely for aspiration. This is hypertensive in etiology based on my review of the MRI of the brain. JOB# [id number] LINDA/ALISTAIR
[2019-08-12] MEDS: hydrALAZINE 25 MG TAB PO SCH ×3 (05:06→22:27)
--- NOTE | 2019-08-12 09:23 | Progress Note ---
Assessment and Plan Assessment and plan: Acute ischemic stroke with right sided weakness Cont Plavix, statin IV hydralazine as needed for blood pressure control Consulted neurology, patient seen by Dr. Chun Physical and Occupational Therapy consulted Hypertensive urgency Start Norvasc IV hydralazine prn for blood pressure control Diabetes mellitus type 2 Check fingersticks, start sliding scale Anxiety/depression, stable DVT prophylaxis 08/12/19 Patient presented with roight sided weakness. She is diagnosed with acute ischemic stroke. Neurology following. PT to see to determine disposition. History Interval history: Right sided weakness difficulty speech Hospitalist Physical - Physical exam Narrative exam: GEN: Not in acute distress, obese, lying in bed HEENT: Normocephalic, atraumatic, Neck: supple, No JVD Lungs: Clear to auscultation bilaterally, heart;S1 and S2 reg, no murmurs, rubs or gallop Abd:soft, non tender, non distended, normal bowel sounds, Ext: No edema, no clubbing, no cyanosis, Neuro: Awake,alert, right sided weakness, dysarthria, Psych: Calm. appropriate - Constitutional Vitals: Temp Pulse Resp BP Pulse Ox 98.7 F 89 20 162/81 94 08/12/19 04:50 08/12/19 05:06 08/12/19 04:50 08/12/19 05:06 08/12/19 04:50 Results - Labs CBC & Chem 7: 08/10/19 19:15 08/10/19 19:15 Labs: Laboratory Last Values WBC 9.0 K/mm3 (4.5-11.0) 08/10/19 19:15 RBC 4.92 M/mm3 (3.65-5.03) 08/10/19 19:15 Hgb 13.5 gm/dl (10.1-14.3) 08/10/19 19:15 Hct 41.0 % (30.3-42.9) 08/10/19 19:15 MCV 83 fl (79-97) 08/10/19 19:15 MCH 27 pg (28-32) L 08/10/19 19:15 MCHC 33 % (30-34) 08/10/19 19:15 RDW 15.0 % (13.2-15.2) 08/10/19 19:15 Plt Count 267 K/mm3 (140-440) 08/10/19 19:15 Lymph % (Auto) 31.4 % (13.4-35.0) 08/10/19 19:15 [place] % (Auto) 5.2 % (0.0-7.3) 08/10/19 19:15 Eos % (Auto) 0.5 % (0.0-4.3) 08/10/19 19:15 Baso % (Auto) 0.4 % (0.0-1.8) 08/10/19 19:15 Lymph # 2.8 K/mm3 (1.2-5.4) 08/10/19 19:15 [place] # 0.5 K/mm3 (0.0-0.8) 08/10/19 19:15 Eos # 0.0 K/mm3 (0.0-0.4) 08/10/19 19:15 Baso # 0.0 K/mm3 (0.0-0.1) 08/10/19 19:15 Seg Neutrophils % 62.5 % (40.0-70.0) 08/10/19 19:15 Seg Neutrophils # 5.6 K/mm3 (1.8-7.7) 08/10/19 19:15 PT 12.8 Sec. (12.2-14.9) 08/10/19 19:15 INR 0.95 (0.87-1.13) 08/10/19 19:15 APTT 24.5 Sec. (24.2-36.6) 08/10/19 19:15 Thrombin Time 18.6 Sec. (15.1-19.6) 08/10/19 19:15 Sodium 140 mmol/L (137-145) 08/10/19 19:15 Potassium 3.9 mmol/L (3.6-5.0) 08/10/19 19:15 Chloride 105.4 mmol/L (98-107) 08/10/19 19:15 Carbon Dioxide 22 mmol/L (22-30) 08/10/19 19:15 Anion Gap 17 mmol/L 08/10/19 19:15 BUN 15 mg/dL (7-17) 08/10/19 19:15 Creatinine 1.0 mg/dL (0.7-1.2) 08/10/19 19:15 Estimated GFR > 60 ml/min 08/10/19 19:15 BUN/Creatinine Ratio 15 % 08/10/19 19:15 Glucose 177 mg/dL (65-100) H 08/10/19 19:15 POC Glucose 119 (70-105) H 08/12/19 08:41 Calcium 9.0 mg/dL (8.4-10.2) 08/10/19 19:15 Total Bilirubin 0.30 mg/dL (0.1-1.2) 08/10/19 19:15 AST 26 units/L (5-40) 08/10/19 19:15 ALT 17 units/L (7-56) 08/10/19 19:15 Alkaline Phosphatase 56 units/L (35-129) 08/10/19 19:15 Ammonia 28.0 umol/L (25-60) 08/10/19 19:15 Total Creatine Kinase 87 units/L (30-135) 08/10/19 19:15 CK-MB (CK-2) 1.5 ng/mL (0.0-4.0) 08/10/19 19:15 CK-MB (CK-2) Rel Index 1.7 (0-4) 08/10/19 19:15 Troponin T < 0.010 ng/mL (0.00-0.029) 08/10/19 19:15 Total Protein 7.5 g/dL (6.3-8.2) 08/10/19 19:15 Albumin 2.8 g/dL (3.9-5) L 08/10/19 19:15 Albumin/Globulin Ratio 0.6 % 08/10/19 19:15 Triglycerides 89 mg/dL (2-149) 08/11/19 05:17 Cholesterol 238 mg/dL (50-199) H 08/11/19 05:17 LDL Cholesterol Direct 188 mg/dL (50-130) H 08/11/19 05:17 HDL Cholesterol 43 mg/dL (40-59) 08/11/19 05:17 Cholesterol/HDL Ratio 5.53 % 08/11/19 05:17 TSH 2.390 mlU/mL (0.270-4.200) 08/10/19 19:15 Urine Color Yellow (Yellow) 08/10/19 04:30 Urine Turbidity Clear (Clear) 08/10/19 04:30 Urine pH 7.0 (5.0-7.0) 08/10/19 04:30 Ur Specific [place] 1.049 (1.003-1.030) H 08/10/19 04:30 Urine Protein >500 mg/dL (Negative) 08/10/19 04:30 Urine Glucose (UA) Neg mg/dL (Negative) 08/10/19 04:30 Urine Ketones Tr mg/dL (Negative) 08/10/19 04:30 Urine Blood Neg (Negative) 08/10/19 04:30 Urine Nitrite Neg (Negative) 08/10/19 04:30 Urine Bilirubin Neg (Negative) 08/10/19 04:30 Urine Urobilinogen < 2.0 mg/dL (<2.0) 08/10/19 04:30 Ur Leukocyte Esterase Neg (Negative) 08/10/19 04:30 Urine WBC (Auto) 3.0 /HPF (0.0-6.0) 08/10/19 04:30 Urine RBC (Auto) 6.0 /HPF (0.0-6.0) 08/10/19 04:30 U Epithel Cells (Auto) 2.0 /HPF (0-13.0) 08/10/19 04:30 Urine Bacteria (Auto) 1+ /HPF (Negative) 08/10/19 04:30 Urine Mucus Few /HPF 08/10/19 04:30 Urine Opiates Screen Presumptive negative 08/10/19 04:30 Urine Methadone Screen Presumptive negative 08/10/19 04:30 Ur Barbiturates Screen Presumptive negative 08/10/19 04:30 Ur Phencyclidine Scrn Presumptive negative 08/10/19 04:30 Ur Amphetamines Screen Presumptive negative 08/10/19 04:30 U Benzodiazepines Scrn Presumptive negative 08/10/19 04:30 Urine Cocaine Screen Presumptive negative 08/10/19 04:30 U Marijuana (THC) Screen Presumptive negative 08/10/19 04:30 Drugs of Abuse Note Disclamer 08/10/19 04:30 Plasma/Serum Alcohol < 0.01 % (0-0.07) 08/10/19 19:15 Blood Type AB POSITIVE 08/10/19 19:15 Antibody Screen Negative 08/10/19 19:15 - Diagnostic Impressions Diagnostic Impressions: Echocardiogram 08/10/19 22:26 Transthoracic Echocardiogram Indication: Stroke BP: 192/100 HR: 76 Conclusions *Global left ventricular wall motion and contractility are within normal limits. *The estimated ejection fraction is 55-60%. *Abnormal left ventricular diastolic filling is observed, consistent with impaired relaxation. *The right ventricular global systolic function is normal. *No atrial septal defected is demonstrated by agitated saline contrast. *There is no evidence of aortic regurgitation. *There is no evidence of mitral regurgitation. *There is trace tricuspid regurgitation. *There is no evidence of pulmonic regurgitation. Findings Left Ventricle: The left ventricular chamber size is normal. Global left ventricular wall motion and contractility are within normal limits. Global left ventricular systolic function is normal. The estimated ejection fraction is 55-60%. Abnormal left ventricular diastolic filling is observed, consistent with impaired relaxation. Left Atrium: The left atrial chamber size is normal. Right Ventricle: The right ventricular cavity size is normal. The right ventricular global systolic function is normal. Right Atrium: The right atrial cavity size is normal. No atrial septal defected is demonstrated by agitated saline contrast. Aortic Valve: The aortic valve structure is normal. There is no evidence of aortic regurgitation. Mitral Valve: The mitral valve leaflets are mildly thickened. There is no evidence of mitral regurgitation. Tricuspid Valve: The tricuspid valve leaflets are normal. There is trace tricuspid regurgitation. Pulmonic Valve: The pulmonic valve is not well visualized. There is no evidence of pulmonic regurgitation. Pericardium: There is no pericardial effusion. Aorta: The aorta appears normal. Venous: The inferior vena cava appears normal in size. Contrast: Intravenous agitated saline contrast was used to assess intracardiac shunting. Measurements Chambers 2D Name Value Normal Range IVSd (2D) 1.09 cm (0.6 - 1.1) LVPWd (2D) 1.01 cm (0.6 - 1.1) LVIDd (2D) 4.56 cm (3.7 - 5.6) LVIDs (2D) 3.59 cm (2 - 3.8) LV FS (2D) 21.14 % - EF Teichholz (2D) 43.07 % - Ao root diameter (2D) 3.24 cm (2 - 3.7) Volumes/Mass Name Value Normal Range LA ESV SP 4CH (A/L) 37.93 ml - LA ESV SP 2CH (A/L) 41.62 ml - LA ESV BP (A/L) 45.32 ml - LA ESV BP (A/L) index 23.36 ml/m2 - LA ESV SP 4CH (MOD) 36.29 ml - LA ESV SP 2CH (MOD) 37.95 ml - LA ESV BP (MOD) 41.23 ml - LA ESV BP (MOD) index 21.25 ml/m2 - LV EDV SP 4CH (MOD) 116.7 ml - LV ESV SP 4CH (MOD) 47.19 ml - EF SP 4CH (MOD) 59.57 % - LV EDV SP 2CH (MOD) 116.94 ml - LV ESV SP 2CH (MOD) 52.32 ml - EF SP 2CH (MOD) 55.26 % - LV EDV BP 120.41 ml - LV ESV BP 50.4 ml - BP EF (MOD) 58 % - Diastolic/Systolic Function Name Value Normal Range MV E-wave Vmax 0.56 m/sec - MV deceleration time 202.65 msec - MV A-wave Vmax 0.96 m/sec - MV E:A ratio 0.59 ratio - Aortic Valve Name Value Normal Range AV Vmax 1.39 m/sec - AV VTI 25.04 cm - AV peak gradient 7.68 mmHg - AV mean gradient 3.87 mmHg - LVOT diameter 2.02 cm - LVOT Vmax 0.84 m/sec - LVOT VTI 15.67 cm - LVOT peak gradient 2.81 mmHg - LVOT mean gradient 1.37 mmHg - SV LVOT 50.43 ml - LATRICE (continuity Vmax) 1.95 cm2 - LATRICE (continuity VTI) 2.01 cm2 - Ascending Ao 3.18 cm - Tricuspid Valve Name Value Normal Range TR Vmax 1.05 m/sec - TR peak gradient 4.4 mmHg - RAP 3 mmHg - Pulmonic Valve/Qp:Qs Name Value Normal Range PV Vmax 1.12 m/sec - PV VTI 21.8 cm - PV peak gradient 5.03 mmHg - PV mean gradient 2.62 mmHg - RVOT Vmax 0.78 m/sec - RVOT VTI 11.5 cm - RVOT peak gradient 2.44 mmHg - Howard/IV: Voiding Method Diaper IV Catheter Type [Right INT / Saline Lock Antecubital] IV Catheter Type [Left INT / Saline Lock Antecubital] IV Catheter Type [Left Forearm Peripheral IV ] Active Medications - Current Medications Current Medications: Generic Name Dose Route Start Last Admin Trade Name Freq PRN Reason Stop Dose Admin Amlodipine Besylate 5 mg 08/11/19 10:00 08/11/19 11:47 Amlodipine PO 5 mg QDAY JASBIR Administration Atorvastatin Calcium 80 mg 08/11/19 22:00 08/11/19 21:36 Lipitor PO 80 mg QHS JASBIR Administration Bisacodyl 10 mg 08/10/19 22:24 Dulcolax AR QDAY PRN Constipation Clopidogrel Bisulfate 75 mg 08/11/19 10:00 08/11/19 11:47 Plavix PO 75 mg DAILY JASBIR Administration Enoxaparin Sodium 40 mg 08/11/19 10:00 08/11/19 11:47 Enoxaparin SUB-Q 40 mg QAM JASBIR Administration Hydralazine HCl 10 mg 08/10/19 22:29 08/11/19 04:20 Apresoline IV 10 mg Q6H PRN Administration Hypertension Hydralazine HCl 50 mg 08/11/19 09:00 08/12/19 05:06 Apresoline PO 50 mg Q8HR JABSIR Administration Ondansetron HCl 4 mg 08/10/19 22:24 Zofran IV Q8H PRN Nausea And Vomiting Sodium Chloride 10 ml 08/10/19 22:24 Sodium Chloride Flush Syringe 10 Ml IV PRN PRN LINE FLUSH
[2019-08-12] MEDS: amLODIPine 5 MG TAB PO SCH (10:24)
[2019-08-12] MEDS: CLOPIDOGREL 75 MG TAB PO SCH (10:24)
[2019-08-12] MEDS: ENOXAPARIN 40 MG/0.4 ML INJ SUB-Q SCH (10:25)
[2019-08-13] MEDS: hydrALAZINE 25 MG TAB PO SCH ×3 (06:05→21:34)
[2019-08-13] MEDS: amLODIPine 5 MG TAB PO SCH (10:03)
[2019-08-13] MEDS: ENOXAPARIN 40 MG/0.4 ML INJ SUB-Q SCH (10:03)
[2019-08-13] MEDS: CLOPIDOGREL 75 MG TAB PO SCH (10:04)
--- NOTE | 2019-08-13 10:09 | Progress Note ---
Assessment and Plan Assessment and plan: Acute ischemic stroke with right sided weakness Cont Plavix, statin IV hydralazine as needed for blood pressure control Consulted neurology, patient seen by Dr. Chun Physical and Occupational Therapy consulted Hypertensive urgency Start Norvasc IV hydralazine prn for blood pressure control Diabetes mellitus type 2 Check fingersticks, start sliding scale Anxiety/depression, stable DVT prophylaxis 08/12/19 Patient presented with right sided weakness. She is diagnosed with acute ischemic stroke. Neurology following. PT to see to determine disposition. 08/13/19 patient with acute ischemic stroke with right sided weakness. PT recommends acute rehab. She is medically stable for discharge History Interval history: Right sided weakness difficulty speech Hospitalist Physical - Physical exam Narrative exam: GEN: Not in acute distress, obese, lying in bed HEENT: Normocephalic, atraumatic, Neck: supple, No JVD Lungs: Clear to auscultation bilaterally, heart;S1 and S2 reg, no murmurs, rubs or gallop Abd:soft, non tender, non distended, normal bowel sounds, Ext: No edema, no clubbing, no cyanosis, Neuro: Awake,alert, right sided weakness, dysarthria, Psych: Calm. appropriate - Constitutional Vitals: Temp Pulse Resp BP Pulse Ox 98.4 F 80 20 152/79 93 08/13/19 05:05 08/13/19 10:03 08/13/19 05:05 08/13/19 10:03 08/13/19 05:05 Results - Labs CBC & Chem 7: 08/10/19 19:15 08/10/19 19:15 Labs: Laboratory Last Values WBC 9.0 K/mm3 (4.5-11.0) 08/10/19 19:15 RBC 4.92 M/mm3 (3.65-5.03) 08/10/19 19:15 Hgb 13.5 gm/dl (10.1-14.3) 08/10/19 19:15 Hct 41.0 % (30.3-42.9) 08/10/19 19:15 MCV 83 fl (79-97) 08/10/19 19:15 MCH 27 pg (28-32) L 08/10/19 19:15 MCHC 33 % (30-34) 08/10/19 19:15 RDW 15.0 % (13.2-15.2) 08/10/19 19:15 Plt Count 267 K/mm3 (140-440) 08/10/19 19:15 Lymph % (Auto) 31.4 % (13.4-35.0) 08/10/19 19:15 [place] % (Auto) 5.2 % (0.0-7.3) 08/10/19 19:15 Eos % (Auto) 0.5 % (0.0-4.3) 08/10/19 19:15 Baso % (Auto) 0.4 % (0.0-1.8) 08/10/19 19:15 Lymph # 2.8 K/mm3 (1.2-5.4) 08/10/19 19:15 [place] # 0.5 K/mm3 (0.0-0.8) 08/10/19 19:15 Eos # 0.0 K/mm3 (0.0-0.4) 08/10/19 19:15 Baso # 0.0 K/mm3 (0.0-0.1) 08/10/19 19:15 Seg Neutrophils % 62.5 % (40.0-70.0) 08/10/19 19:15 Seg Neutrophils # 5.6 K/mm3 (1.8-7.7) 08/10/19 19:15 PT 12.8 Sec. (12.2-14.9) 08/10/19 19:15 INR 0.95 (0.87-1.13) 08/10/19 19:15 APTT 24.5 Sec. (24.2-36.6) 08/10/19 19:15 Thrombin Time 18.6 Sec. (15.1-19.6) 08/10/19 19:15 Sodium 140 mmol/L (137-145) 08/10/19 19:15 Potassium 3.9 mmol/L (3.6-5.0) 08/10/19 19:15 Chloride 105.4 mmol/L (98-107) 08/10/19 19:15 Carbon Dioxide 22 mmol/L (22-30) 08/10/19 19:15 Anion Gap 17 mmol/L 08/10/19 19:15 BUN 15 mg/dL (7-17) 08/10/19 19:15 Creatinine 1.0 mg/dL (0.7-1.2) 08/10/19 19:15 Estimated GFR > 60 ml/min 08/10/19 19:15 BUN/Creatinine Ratio 15 % 08/10/19 19:15 Glucose 177 mg/dL (65-100) H 08/10/19 19:15 POC Glucose 152 (70-105) H 08/12/19 20:06 Calcium 9.0 mg/dL (8.4-10.2) 08/10/19 19:15 Total Bilirubin 0.30 mg/dL (0.1-1.2) 08/10/19 19:15 AST 26 units/L (5-40) 08/10/19 19:15 ALT 17 units/L (7-56) 08/10/19 19:15 Alkaline Phosphatase 56 units/L (35-129) 08/10/19 19:15 Ammonia 28.0 umol/L (25-60) 08/10/19 19:15 Total Creatine Kinase 87 units/L (30-135) 08/10/19 19:15 CK-MB (CK-2) 1.5 ng/mL (0.0-4.0) 08/10/19 19:15 CK-MB (CK-2) Rel Index 1.7 (0-4) 08/10/19 19:15 Troponin T < 0.010 ng/mL (0.00-0.029) 08/10/19 19:15 Total Protein 7.5 g/dL (6.3-8.2) 08/10/19 19:15 Albumin 2.8 g/dL (3.9-5) L 08/10/19 19:15 Albumin/Globulin Ratio 0.6 % 08/10/19 19:15 Triglycerides 89 mg/dL (2-149) 08/11/19 05:17 Cholesterol 238 mg/dL (50-199) H 08/11/19 05:17 LDL Cholesterol Direct 188 mg/dL (50-130) H 08/11/19 05:17 HDL Cholesterol 43 mg/dL (40-59) 08/11/19 05:17 Cholesterol/HDL Ratio 5.53 % 08/11/19 05:17 TSH 2.390 mlU/mL (0.270-4.200) 08/10/19 19:15 Urine Color Yellow (Yellow) 08/10/19 04:30 Urine Turbidity Clear (Clear) 08/10/19 04:30 Urine pH 7.0 (5.0-7.0) 08/10/19 04:30 Ur Specific [place] 1.049 (1.003-1.030) H 08/10/19 04:30 Urine Protein >500 mg/dL (Negative) 08/10/19 04:30 Urine Glucose (UA) Neg mg/dL (Negative) 08/10/19 04:30 Urine Ketones Tr mg/dL (Negative) 08/10/19 04:30 Urine Blood Neg (Negative) 08/10/19 04:30 Urine Nitrite Neg (Negative) 08/10/19 04:30 Urine Bilirubin Neg (Negative) 08/10/19 04:30 Urine Urobilinogen < 2.0 mg/dL (<2.0) 08/10/19 04:30 Ur Leukocyte Esterase Neg (Negative) 08/10/19 04:30 Urine WBC (Auto) 3.0 /HPF (0.0-6.0) 08/10/19 04:30 Urine RBC (Auto) 6.0 /HPF (0.0-6.0) 08/10/19 04:30 U Epithel Cells (Auto) 2.0 /HPF (0-13.0) 08/10/19 04:30 Urine Bacteria (Auto) 1+ /HPF (Negative) 08/10/19 04:30 Urine Mucus Few /HPF 08/10/19 04:30 Urine Opiates Screen Presumptive negative 08/10/19 04:30 Urine Methadone Screen Presumptive negative 08/10/19 04:30 Ur Barbiturates Screen Presumptive negative 08/10/19 04:30 Ur Phencyclidine Scrn Presumptive negative 08/10/19 04:30 Ur Amphetamines Screen Presumptive negative 08/10/19 04:30 U Benzodiazepines Scrn Presumptive negative 08/10/19 04:30 Urine Cocaine Screen Presumptive negative 08/10/19 04:30 U Marijuana (THC) Screen Presumptive negative 08/10/19 04:30 Drugs of Abuse Note Disclamer 08/10/19 04:30 Plasma/Serum Alcohol < 0.01 % (0-0.07) 08/10/19 19:15 Blood Type AB POSITIVE 08/10/19 19:15 Antibody Screen Negative 08/10/19 19:15 - Diagnostic Impressions Diagnostic Impressions: Echocardiogram 08/10/19 22:26 Transthoracic Echocardiogram Indication: Stroke BP: 192/100 HR: 76 Conclusions *Global left ventricular wall motion and contractility are within normal limits. *The estimated ejection fraction is 55-60%. *Abnormal left ventricular diastolic filling is observed, consistent with impaired relaxation. *The right ventricular global systolic function is normal. *No atrial septal defected is demonstrated by agitated saline contrast. *There is no evidence of aortic regurgitation. *There is no evidence of mitral regurgitation. *There is trace tricuspid regurgitation. *There is no evidence of pulmonic regurgitation. Findings Left Ventricle: The left ventricular chamber size is normal. Global left ventricular wall motion and contractility are within normal limits. Global left ventricular systolic function is normal. The estimated ejection fraction is 55-60%. Abnormal left ventricular diastolic filling is observed, consistent with impaired relaxation. Left Atrium: The left atrial chamber size is normal. Right Ventricle: The right ventricular cavity size is normal. The right ventricular global systolic function is normal. Right Atrium: The right atrial cavity size is normal. No atrial septal defected is demonstrated by agitated saline contrast. Aortic Valve: The aortic valve structure is normal. There is no evidence of aortic regurgitation. Mitral Valve: The mitral valve leaflets are mildly thickened. There is no evidence of mitral regurgitation. Tricuspid Valve: The tricuspid valve leaflets are normal. There is trace tricuspid regurgitation. Pulmonic Valve: The pulmonic valve is not well visualized. There is no evidence of pulmonic regurgitation. Pericardium: There is no pericardial effusion. Aorta: The aorta appears normal. Venous: The inferior vena cava appears normal in size. Contrast: Intravenous agitated saline contrast was used to assess intracardiac shunting. Measurements Chambers 2D Name Value Normal Range IVSd (2D) 1.09 cm (0.6 - 1.1) LVPWd (2D) 1.01 cm (0.6 - 1.1) LVIDd (2D) 4.56 cm (3.7 - 5.6) LVIDs (2D) 3.59 cm (2 - 3.8) LV FS (2D) 21.14 % - EF Teichholz (2D) 43.07 % - Ao root diameter (2D) 3.24 cm (2 - 3.7) Volumes/Mass Name Value Normal Range LA ESV SP 4CH (A/L) 37.93 ml - LA ESV SP 2CH (A/L) 41.62 ml - LA ESV BP (A/L) 45.32 ml - LA ESV BP (A/L) index 23.36 ml/m2 - LA ESV SP 4CH (MOD) 36.29 ml - LA ESV SP 2CH (MOD) 37.95 ml - LA ESV BP (MOD) 41.23 ml - LA ESV BP (MOD) index 21.25 ml/m2 - LV EDV SP 4CH (MOD) 116.7 ml - LV ESV SP 4CH (MOD) 47.19 ml - EF SP 4CH (MOD) 59.57 % - LV EDV SP 2CH (MOD) 116.94 ml - LV ESV SP 2CH (MOD) 52.32 ml - EF SP 2CH (MOD) 55.26 % - LV EDV BP 120.41 ml - LV ESV BP 50.4 ml - BP EF (MOD) 58 % - Diastolic/Systolic Function Name Value Normal Range MV E-wave Vmax 0.56 m/sec - MV deceleration time 202.65 msec - MV A-wave Vmax 0.96 m/sec - MV E:A ratio 0.59 ratio - Aortic Valve Name Value Normal Range AV Vmax 1.39 m/sec - AV VTI 25.04 cm - AV peak gradient 7.68 mmHg - AV mean gradient 3.87 mmHg - LVOT diameter 2.02 cm - LVOT Vmax 0.84 m/sec - LVOT VTI 15.67 cm - LVOT peak gradient 2.81 mmHg - LVOT mean gradient 1.37 mmHg - SV LVOT 50.43 ml - LATRICE (continuity Vmax) 1.95 cm2 - LATRICE (continuity VTI) 2.01 cm2 - Ascending Ao 3.18 cm - Tricuspid Valve Name Value Normal Range TR Vmax 1.05 m/sec - TR peak gradient 4.4 mmHg - RAP 3 mmHg - Pulmonic Valve/Qp:Qs Name Value Normal Range PV Vmax 1.12 m/sec - PV VTI 21.8 cm - PV peak gradient 5.03 mmHg - PV mean gradient 2.62 mmHg - RVOT Vmax 0.78 m/sec - RVOT VTI 11.5 cm - RVOT peak gradient 2.44 mmHg - [place]/IV: Voiding Method Diaper IV Catheter Type [Right INT / Saline Lock Antecubital] IV Catheter Type [Left INT / Saline Lock Antecubital] IV Catheter Type [Left Forearm Peripheral IV ] Active Medications - Current Medications Current Medications: Generic Name Dose Route Start Last Admin Trade Name Freq PRN Reason Stop Dose Admin Amlodipine Besylate 5 mg 08/11/19 10:00 08/13/19 10:03 Amlodipine PO 5 mg QDAY JASBIR Administration Atorvastatin Calcium 80 mg 08/11/19 22:00 08/12/19 22:27 Lipitor PO 80 mg QHS JASBIR Administration Bisacodyl 10 mg 08/10/19 22:24 Dulcolax [place] QDAY PRN Constipation Clopidogrel Bisulfate 75 mg 08/11/19 10:00 08/13/19 10:04 Plavix PO 75 mg DAILY JASBIR Administration Enoxaparin Sodium 40 mg 08/11/19 10:00 08/13/19 10:03 Enoxaparin SUB-Q 40 mg QAM JASBIR Administration Hydralazine HCl 10 mg 08/10/19 22:29 08/11/19 04:20 Apresoline IV 10 mg Q6H PRN Administration Hypertension Hydralazine HCl 50 mg 08/11/19 09:00 08/13/19 06:05 Apresoline PO 50 mg Q8HR JASBIR Administration Ondansetron HCl 4 mg 08/10/19 22:24 Zofran IV Q8H PRN Nausea And Vomiting Sodium Chloride 10 ml 08/10/19 22:24 08/13/19 10:04 Sodium Chloride Flush Syringe 10 Ml IV 10 ml PRN PRN Administration LINE FLUSH
--- NOTE | 2019-08-13 12:06 | Progress Note ---
Subjective Date of service: 08/13/19 Interval history: suspect patient can kieran discharfged to short term stroke rehab therapy I did mention that I went overr the CTA with Dr. Deleon and the vessel involvement on the CTA is small vessel disease due to HTN and not main branch MCA or ICA occlusive disease Thanks Objective - Vital Sign Vital Signs - 12hr 08/13/19 08/13/19 08/13/19 01:19 05:05 10:00 Temperature 98.8 F 98.4 F Pulse Rate 76 82 61 Respiratory 20 20 Rate Blood Pressure 169/75 170/79 O2 Sat by Pulse 94 93 Oximetry 08/13/19 10:03 Temperature Pulse Rate 80 Respiratory Rate Blood Pressure 152/79 O2 Sat by Pulse Oximetry - Laboratory Findings CBC and BMP: 08/10/19 19:15 08/10/19 19:15 Abnormal Lab Findings: Abnormal Labs 08/10/19 08/10/19 08/10/19 04:30 19:15 19:15 MCH 27 L Glucose 177 H POC Glucose Albumin 2.8 L Cholesterol LDL Cholesterol Direct Ur Specific [place] 1.049 H 08/11/19 08/12/19 08/12/19 05:17 08:41 12:40 MCH Glucose POC Glucose 119 H 174 H Albumin Cholesterol 238 H LDL Cholesterol Direct 188 H Ur Specific [place] 08/12/19 08/12/19 16:28 20:06 MCH Glucose POC Glucose 158 H 152 H Albumin Cholesterol LDL Cholesterol Direct Ur Specific [place]
[2019-08-14] MEDS: hydrALAZINE 25 MG TAB PO SCH ×3 (05:50→21:33)
--- NOTE | 2019-08-14 08:52 | Progress Note ---
Assessment and Plan Assessment and plan: Acute ischemic stroke with right sided weakness Cont Plavix, statin IV hydralazine as needed for blood pressure control Consulted neurology, patient seen by Dr. Chun Physical and Occupational Therapy consulted Hypertensive urgency Start Norvasc IV hydralazine prn for blood pressure control Diabetes mellitus type 2 Check fingersticks, start sliding scale Anxiety/depression, stable DVT prophylaxis 08/12/19 Patient presented with right sided weakness. She is diagnosed with acute ischemic stroke. Neurology following. PT to see to determine disposition. 08/13/19 patient with acute ischemic stroke with right sided weakness. PT recommends acute rehab. She is medically stable for discharge 08/14/19 Patient with acute stroke. Awaiting transfer to Acute rehab. History Interval history: Right sided weakness difficulty speech Hospitalist Physical - Physical exam Narrative exam: GEN: Not in acute distress, obese, lying in bed HEENT: Normocephalic, atraumatic, Neck: supple, No JVD Lungs: Clear to auscultation bilaterally, heart;S1 and S2 reg, no murmurs, rubs or gallop Abd:soft, non tender, non distended, normal bowel sounds, Ext: No edema, no clubbing, no cyanosis, Neuro: Awake,alert, right sided weakness, dysarthria, Psych: Calm. appropriate - Constitutional Vitals: Temp Pulse Resp BP Pulse Ox 98.1 F 84 18 158/68 96 08/14/19 04:24 08/14/19 05:50 08/14/19 04:24 08/14/19 05:50 08/14/19 04:24 Results - Labs CBC & Chem 7: 08/10/19 19:15 08/10/19 19:15 Labs: Laboratory Last Values WBC 9.0 K/mm3 (4.5-11.0) 08/10/19 19:15 RBC 4.92 M/mm3 (3.65-5.03) 08/10/19 19:15 Hgb 13.5 gm/dl (10.1-14.3) 08/10/19 19:15 Hct 41.0 % (30.3-42.9) 08/10/19 19:15 MCV 83 fl (79-97) 08/10/19 19:15 MCH 27 pg (28-32) L 08/10/19 19:15 MCHC 33 % (30-34) 08/10/19 19:15 RDW 15.0 % (13.2-15.2) 08/10/19 19:15 Plt Count 267 K/mm3 (140-440) 08/10/19 19:15 Lymph % (Auto) 31.4 % (13.4-35.0) 08/10/19 19:15 [place] % (Auto) 5.2 % (0.0-7.3) 08/10/19 19:15 Eos % (Auto) 0.5 % (0.0-4.3) 08/10/19 19:15 Baso % (Auto) 0.4 % (0.0-1.8) 08/10/19 19:15 Lymph # 2.8 K/mm3 (1.2-5.4) 08/10/19 19:15 [place] # 0.5 K/mm3 (0.0-0.8) 08/10/19 19:15 Eos # 0.0 K/mm3 (0.0-0.4) 08/10/19 19:15 Baso # 0.0 K/mm3 (0.0-0.1) 08/10/19 19:15 Seg Neutrophils % 62.5 % (40.0-70.0) 08/10/19 19:15 Seg Neutrophils # 5.6 K/mm3 (1.8-7.7) 08/10/19 19:15 PT 12.8 Sec. (12.2-14.9) 08/10/19 19:15 INR 0.95 (0.87-1.13) 08/10/19 19:15 APTT 24.5 Sec. (24.2-36.6) 08/10/19 19:15 Thrombin Time 18.6 Sec. (15.1-19.6) 08/10/19 19:15 Sodium 140 mmol/L (137-145) 08/10/19 19:15 Potassium 3.9 mmol/L (3.6-5.0) 08/10/19 19:15 Chloride 105.4 mmol/L (98-107) 08/10/19 19:15 Carbon Dioxide 22 mmol/L (22-30) 08/10/19 19:15 Anion Gap 17 mmol/L 08/10/19 19:15 BUN 15 mg/dL (7-17) 08/10/19 19:15 Creatinine 1.0 mg/dL (0.7-1.2) 08/10/19 19:15 Estimated GFR > 60 ml/min 08/10/19 19:15 BUN/Creatinine Ratio 15 % 08/10/19 19:15 Glucose 177 mg/dL (65-100) H 08/10/19 19:15 POC Glucose 146 (70-105) H 08/14/19 08:13 Calcium 9.0 mg/dL (8.4-10.2) 08/10/19 19:15 Total Bilirubin 0.30 mg/dL (0.1-1.2) 08/10/19 19:15 AST 26 units/L (5-40) 08/10/19 19:15 ALT 17 units/L (7-56) 08/10/19 19:15 Alkaline Phosphatase 56 units/L (35-129) 08/10/19 19:15 Ammonia 28.0 umol/L (25-60) 08/10/19 19:15 Total Creatine Kinase 87 units/L (30-135) 08/10/19 19:15 CK-MB (CK-2) 1.5 ng/mL (0.0-4.0) 08/10/19 19:15 CK-MB (CK-2) Rel Index 1.7 (0-4) 08/10/19 19:15 Troponin T < 0.010 ng/mL (0.00-0.029) 08/10/19 19:15 Total Protein 7.5 g/dL (6.3-8.2) 08/10/19 19:15 Albumin 2.8 g/dL (3.9-5) L 08/10/19 19:15 Albumin/Globulin Ratio 0.6 % 08/10/19 19:15 Triglycerides 89 mg/dL (2-149) 08/11/19 05:17 Cholesterol 238 mg/dL (50-199) H 08/11/19 05:17 LDL Cholesterol Direct 188 mg/dL (50-130) H 08/11/19 05:17 HDL Cholesterol 43 mg/dL (40-59) 08/11/19 05:17 Cholesterol/HDL Ratio 5.53 % 08/11/19 05:17 TSH 2.390 mlU/mL (0.270-4.200) 08/10/19 19:15 Urine Color Yellow (Yellow) 08/10/19 04:30 Urine Turbidity Clear (Clear) 08/10/19 04:30 Urine pH 7.0 (5.0-7.0) 08/10/19 04:30 Ur Specific [place] 1.049 (1.003-1.030) H 08/10/19 04:30 Urine Protein >500 mg/dL (Negative) 08/10/19 04:30 Urine Glucose (UA) Neg mg/dL (Negative) 08/10/19 04:30 Urine Ketones Tr mg/dL (Negative) 08/10/19 04:30 Urine Blood Neg (Negative) 08/10/19 04:30 Urine Nitrite Neg (Negative) 08/10/19 04:30 Urine Bilirubin Neg (Negative) 08/10/19 04:30 Urine Urobilinogen < 2.0 mg/dL (<2.0) 08/10/19 04:30 Ur Leukocyte Esterase Neg (Negative) 08/10/19 04:30 Urine WBC (Auto) 3.0 /HPF (0.0-6.0) 08/10/19 04:30 Urine RBC (Auto) 6.0 /HPF (0.0-6.0) 08/10/19 04:30 U Epithel Cells (Auto) 2.0 /HPF (0-13.0) 08/10/19 04:30 Urine Bacteria (Auto) 1+ /HPF (Negative) 08/10/19 04:30 Urine Mucus Few /HPF 08/10/19 04:30 Urine Opiates Screen Presumptive negative 08/10/19 04:30 Urine Methadone Screen Presumptive negative 08/10/19 04:30 Ur Barbiturates Screen Presumptive negative 08/10/19 04:30 Ur Phencyclidine Scrn Presumptive negative 08/10/19 04:30 Ur Amphetamines Screen Presumptive negative 08/10/19 04:30 U Benzodiazepines Scrn Presumptive negative 08/10/19 04:30 Urine Cocaine Screen Presumptive negative 08/10/19 04:30 U Marijuana (THC) Screen Presumptive negative 08/10/19 04:30 Drugs of Abuse Note Disclamer 08/10/19 04:30 Plasma/Serum Alcohol < 0.01 % (0-0.07) 08/10/19 19:15 Blood Type AB POSITIVE 08/10/19 19:15 Antibody Screen Negative 08/10/19 19:15 - Diagnostic Impressions Diagnostic Impressions: Echocardiogram 08/10/19 22:26 Transthoracic Echocardiogram Indication: Stroke BP: 192/100 HR: 76 Conclusions *Global left ventricular wall motion and contractility are within normal limits. *The estimated ejection fraction is 55-60%. *Abnormal left ventricular diastolic filling is observed, consistent with impaired relaxation. *The right ventricular global systolic function is normal. *No atrial septal defected is demonstrated by agitated saline contrast. *There is no evidence of aortic regurgitation. *There is no evidence of mitral regurgitation. *There is trace tricuspid regurgitation. *There is no evidence of pulmonic regurgitation. Findings Left Ventricle: The left ventricular chamber size is normal. Global left ventricular wall motion and contractility are within normal limits. Global left ventricular systolic function is normal. The estimated ejection fraction is 55-60%. Abnormal left ventricular diastolic filling is observed, consistent with impaired relaxation. Left Atrium: The left atrial chamber size is normal. Right Ventricle: The right ventricular cavity size is normal. The right ventricular global systolic function is normal. Right Atrium: The right atrial cavity size is normal. No atrial septal defected is demonstrated by agitated saline contrast. Aortic Valve: The aortic valve structure is normal. There is no evidence of aortic regurgitation. Mitral Valve: The mitral valve leaflets are mildly thickened. There is no evidence of mitral regurgitation. Tricuspid Valve: The tricuspid valve leaflets are normal. There is trace tricuspid regurgitation. Pulmonic Valve: The pulmonic valve is not well visualized. There is no evidence of pulmonic regurgitation. Pericardium: There is no pericardial effusion. Aorta: The aorta appears normal. Venous: The inferior vena cava appears normal in size. Contrast: Intravenous agitated saline contrast was used to assess intracardiac shunting. Measurements Chambers 2D Name Value Normal Range IVSd (2D) 1.09 cm (0.6 - 1.1) LVPWd (2D) 1.01 cm (0.6 - 1.1) LVIDd (2D) 4.56 cm (3.7 - 5.6) LVIDs (2D) 3.59 cm (2 - 3.8) LV FS (2D) 21.14 % - EF Teichholz (2D) 43.07 % - Ao root diameter (2D) 3.24 cm (2 - 3.7) Volumes/Mass Name Value Normal Range LA ESV SP 4CH (A/L) 37.93 ml - LA ESV SP 2CH (A/L) 41.62 ml - LA ESV BP (A/L) 45.32 ml - LA ESV BP (A/L) index 23.36 ml/m2 - LA ESV SP 4CH (MOD) 36.29 ml - LA ESV SP 2CH (MOD) 37.95 ml - LA ESV BP (MOD) 41.23 ml - LA ESV BP (MOD) index 21.25 ml/m2 - LV EDV SP 4CH (MOD) 116.7 ml - LV ESV SP 4CH (MOD) 47.19 ml - EF SP 4CH (MOD) 59.57 % - LV EDV SP 2CH (MOD) 116.94 ml - LV ESV SP 2CH (MOD) 52.32 ml - EF SP 2CH (MOD) 55.26 % - LV EDV BP 120.41 ml - LV ESV BP 50.4 ml - BP EF (MOD) 58 % - Diastolic/Systolic Function Name Value Normal Range MV E-wave Vmax 0.56 m/sec - MV deceleration time 202.65 msec - MV A-wave Vmax 0.96 m/sec - MV E:A ratio 0.59 ratio - Aortic Valve Name Value Normal Range AV Vmax 1.39 m/sec - AV VTI 25.04 cm - AV peak gradient 7.68 mmHg - AV mean gradient 3.87 mmHg - LVOT diameter 2.02 cm - LVOT Vmax 0.84 m/sec - LVOT VTI 15.67 cm - LVOT peak gradient 2.81 mmHg - LVOT mean gradient 1.37 mmHg - SV LVOT 50.43 ml - LATRICE (continuity Vmax) 1.95 cm2 - LATRICE (continuity VTI) 2.01 cm2 - Ascending Ao 3.18 cm - Tricuspid Valve Name Value Normal Range TR Vmax 1.05 m/sec - TR peak gradient 4.4 mmHg - RAP 3 mmHg - Pulmonic Valve/Qp:Qs Name Value Normal Range PV Vmax 1.12 m/sec - PV VTI 21.8 cm - PV peak gradient 5.03 mmHg - PV mean gradient 2.62 mmHg - RVOT Vmax 0.78 m/sec - RVOT VTI 11.5 cm - RVOT peak gradient 2.44 mmHg - Howard/IV: Voiding Method External Female Catheter IV Catheter Type [Right INT / Saline Lock Antecubital] IV Catheter Type [Left INT / Saline Lock Antecubital] IV Catheter Type [Left Forearm Peripheral IV ] Active Medications - Current Medications Current Medications: Generic Name Dose Route Start Last Admin Trade Name Freq PRN Reason Stop Dose Admin Amlodipine Besylate 5 mg 08/11/19 10:00 08/13/19 10:03 Amlodipine PO 5 mg QDAY JASBIR Administration Atorvastatin Calcium 80 mg 08/11/19 22:00 08/13/19 21:34 Lipitor PO 80 mg QHS JASBIR Administration Bisacodyl 10 mg 08/10/19 22:24 Dulcolax [place] QDAY PRN Constipation Clopidogrel Bisulfate 75 mg 08/11/19 10:00 08/13/19 10:04 Plavix PO 75 mg DAILY JASBIR Administration Enoxaparin Sodium 40 mg 08/11/19 10:00 08/13/19 10:03 Enoxaparin SUB-Q 40 mg QAM JASBIR Administration Hydralazine HCl 10 mg 08/10/19 22:29 08/11/19 04:20 Apresoline IV 10 mg Q6H PRN Administration Hypertension Hydralazine HCl 50 mg 08/11/19 09:00 08/14/19 05:50 Apresoline PO 50 mg Q8HR JASBIR Administration Ondansetron HCl 4 mg 08/10/19 22:24 Zofran IV Q8H PRN Nausea And Vomiting Sodium Chloride 10 ml 08/10/19 22:24 08/13/19 10:04 Sodium Chloride Flush Syringe 10 Ml IV 10 ml PRN PRN Administration LINE FLUSH
[2019-08-14] MEDS: amLODIPine 5 MG TAB PO SCH (11:29)
[2019-08-14] MEDS: ENOXAPARIN 40 MG/0.4 ML INJ SUB-Q SCH (11:29)
[2019-08-14] MEDS: CLOPIDOGREL 75 MG TAB PO SCH (11:29)
[2019-08-15] MEDS: hydrALAZINE 25 MG TAB PO SCH ×3 (05:24→21:47)
--- NOTE | 2019-08-15 09:51 | Progress Note ---
Assessment and Plan Assessment and plan: Acute ischemic stroke with right sided weakness Cont Plavix, statin IV hydralazine as needed for blood pressure control Consulted neurology, patient seen by Dr. Chun Physical and Occupational Therapy consulted Hypertensive urgency Start Norvasc IV hydralazine prn for blood pressure control Diabetes mellitus type 2 Check fingersticks, start sliding scale Anxiety/depression, stable DVT prophylaxis 08/12/19 Patient presented with right sided weakness. She is diagnosed with acute ischemic stroke. Neurology following. PT to see to determine disposition. 08/13/19 patient with acute ischemic stroke with right sided weakness. PT recommends acute rehab. She is medically stable for discharge 08/14/19 Patient with acute stroke. Awaiting transfer to Acute rehab. 08/15/19 patient with acute ischemic stroke. She is medically stable. Awaiting transfer to Acute rehab. History Interval history: Right sided weakness difficulty speech Hospitalist Physical - Physical exam Narrative exam: GEN: Not in acute distress, obese, lying in bed HEENT: Normocephalic, atraumatic, Neck: supple, No JVD Lungs: Clear to auscultation bilaterally, heart;S1 and S2 reg, no murmurs, rubs or gallop Abd:soft, non tender, non distended, normal bowel sounds, Ext: No edema, no clubbing, no cyanosis, Neuro: Awake,alert, right sided weakness, dysarthria, Psych: Calm. appropriate - Constitutional Vitals: Temp Pulse Resp BP Pulse Ox 97.7 F 89 18 160/71 91 08/15/19 08:07 08/15/19 08:07 08/15/19 08:07 08/15/19 08:07 08/15/19 08:07 Results - Labs CBC & Chem 7: 08/10/19 19:15 08/10/19 19:15 Labs: Laboratory Last Values WBC 9.0 K/mm3 (4.5-11.0) 08/10/19 19:15 RBC 4.92 M/mm3 (3.65-5.03) 08/10/19 19:15 Hgb 13.5 gm/dl (10.1-14.3) 08/10/19 19:15 Hct 41.0 % (30.3-42.9) 08/10/19 19:15 MCV 83 fl (79-97) 08/10/19 19:15 MCH 27 pg (28-32) L 08/10/19 19:15 MCHC 33 % (30-34) 08/10/19 19:15 RDW 15.0 % (13.2-15.2) 08/10/19 19:15 Plt Count 267 K/mm3 (140-440) 08/10/19 19:15 Lymph % (Auto) 31.4 % (13.4-35.0) 08/10/19 19:15 [place] % (Auto) 5.2 % (0.0-7.3) 08/10/19 19:15 Eos % (Auto) 0.5 % (0.0-4.3) 08/10/19 19:15 Baso % (Auto) 0.4 % (0.0-1.8) 08/10/19 19:15 Lymph # 2.8 K/mm3 (1.2-5.4) 08/10/19 19:15 [place] # 0.5 K/mm3 (0.0-0.8) 08/10/19 19:15 Eos # 0.0 K/mm3 (0.0-0.4) 08/10/19 19:15 Baso # 0.0 K/mm3 (0.0-0.1) 08/10/19 19:15 Seg Neutrophils % 62.5 % (40.0-70.0) 08/10/19 19:15 Seg Neutrophils # 5.6 K/mm3 (1.8-7.7) 08/10/19 19:15 PT 12.8 Sec. (12.2-14.9) 08/10/19 19:15 INR 0.95 (0.87-1.13) 08/10/19 19:15 APTT 24.5 Sec. (24.2-36.6) 08/10/19 19:15 Thrombin Time 18.6 Sec. (15.1-19.6) 08/10/19 19:15 Sodium 140 mmol/L (137-145) 08/10/19 19:15 Potassium 3.9 mmol/L (3.6-5.0) 08/10/19 19:15 Chloride 105.4 mmol/L (98-107) 08/10/19 19:15 Carbon Dioxide 22 mmol/L (22-30) 08/10/19 19:15 Anion Gap 17 mmol/L 08/10/19 19:15 BUN 15 mg/dL (7-17) 08/10/19 19:15 Creatinine 1.0 mg/dL (0.7-1.2) 08/10/19 19:15 Estimated GFR > 60 ml/min 08/10/19 19:15 BUN/Creatinine Ratio 15 % 08/10/19 19:15 Glucose 177 mg/dL (65-100) H 08/10/19 19:15 POC Glucose 120 (70-105) H 08/15/19 08:19 Calcium 9.0 mg/dL (8.4-10.2) 08/10/19 19:15 Total Bilirubin 0.30 mg/dL (0.1-1.2) 08/10/19 19:15 AST 26 units/L (5-40) 08/10/19 19:15 ALT 17 units/L (7-56) 08/10/19 19:15 Alkaline Phosphatase 56 units/L (35-129) 08/10/19 19:15 Ammonia 28.0 umol/L (25-60) 08/10/19 19:15 Total Creatine Kinase 87 units/L (30-135) 08/10/19 19:15 CK-MB (CK-2) 1.5 ng/mL (0.0-4.0) 08/10/19 19:15 CK-MB (CK-2) Rel Index 1.7 (0-4) 08/10/19 19:15 Troponin T < 0.010 ng/mL (0.00-0.029) 08/10/19 19:15 Total Protein 7.5 g/dL (6.3-8.2) 08/10/19 19:15 Albumin 2.8 g/dL (3.9-5) L 08/10/19 19:15 Albumin/Globulin Ratio 0.6 % 08/10/19 19:15 Triglycerides 89 mg/dL (2-149) 08/11/19 05:17 Cholesterol 238 mg/dL (50-199) H 08/11/19 05:17 LDL Cholesterol Direct 188 mg/dL (50-130) H 08/11/19 05:17 HDL Cholesterol 43 mg/dL (40-59) 08/11/19 05:17 Cholesterol/HDL Ratio 5.53 % 08/11/19 05:17 TSH 2.390 mlU/mL (0.270-4.200) 08/10/19 19:15 Urine Color Yellow (Yellow) 08/10/19 04:30 Urine Turbidity Clear (Clear) 08/10/19 04:30 Urine pH 7.0 (5.0-7.0) 08/10/19 04:30 Ur Specific [place] 1.049 (1.003-1.030) H 08/10/19 04:30 Urine Protein >500 mg/dL (Negative) 08/10/19 04:30 Urine Glucose (UA) Neg mg/dL (Negative) 08/10/19 04:30 Urine Ketones Tr mg/dL (Negative) 08/10/19 04:30 Urine Blood Neg (Negative) 08/10/19 04:30 Urine Nitrite Neg (Negative) 08/10/19 04:30 Urine Bilirubin Neg (Negative) 08/10/19 04:30 Urine Urobilinogen < 2.0 mg/dL (<2.0) 08/10/19 04:30 Ur Leukocyte Esterase Neg (Negative) 08/10/19 04:30 Urine WBC (Auto) 3.0 /HPF (0.0-6.0) 08/10/19 04:30 Urine RBC (Auto) 6.0 /HPF (0.0-6.0) 08/10/19 04:30 U Epithel Cells (Auto) 2.0 /HPF (0-13.0) 08/10/19 04:30 Urine Bacteria (Auto) 1+ /HPF (Negative) 08/10/19 04:30 Urine Mucus Few /HPF 08/10/19 04:30 Urine Opiates Screen Presumptive negative 08/10/19 04:30 Urine Methadone Screen Presumptive negative 08/10/19 04:30 Ur Barbiturates Screen Presumptive negative 08/10/19 04:30 Ur Phencyclidine Scrn Presumptive negative 08/10/19 04:30 Ur Amphetamines Screen Presumptive negative 08/10/19 04:30 U Benzodiazepines Scrn Presumptive negative 08/10/19 04:30 Urine Cocaine Screen Presumptive negative 08/10/19 04:30 U Marijuana (THC) Screen Presumptive negative 08/10/19 04:30 Drugs of Abuse Note Disclamer 08/10/19 04:30 Plasma/Serum Alcohol < 0.01 % (0-0.07) 08/10/19 19:15 Blood Type AB POSITIVE 08/10/19 19:15 Antibody Screen Negative 08/10/19 19:15 - Diagnostic Impressions Diagnostic Impressions: Echocardiogram 08/10/19 22:26 Transthoracic Echocardiogram Indication: Stroke BP: 192/100 HR: 76 Conclusions *Global left ventricular wall motion and contractility are within normal limits. *The estimated ejection fraction is 55-60%. *Abnormal left ventricular diastolic filling is observed, consistent with impaired relaxation. *The right ventricular global systolic function is normal. *No atrial septal defected is demonstrated by agitated saline contrast. *There is no evidence of aortic regurgitation. *There is no evidence of mitral regurgitation. *There is trace tricuspid regurgitation. *There is no evidence of pulmonic regurgitation. Findings Left Ventricle: The left ventricular chamber size is normal. Global left ventricular wall motion and contractility are within normal limits. Global left ventricular systolic function is normal. The estimated ejection fraction is 55-60%. Abnormal left ventricular diastolic filling is observed, consistent with impaired relaxation. Left Atrium: The left atrial chamber size is normal. Right Ventricle: The right ventricular cavity size is normal. The right ventricular global systolic function is normal. Right Atrium: The right atrial cavity size is normal. No atrial septal defected is demonstrated by agitated saline contrast. Aortic Valve: The aortic valve structure is normal. There is no evidence of aortic regurgitation. Mitral Valve: The mitral valve leaflets are mildly thickened. There is no evidence of mitral regurgitation. Tricuspid Valve: The tricuspid valve leaflets are normal. There is trace tricuspid regurgitation. Pulmonic Valve: The pulmonic valve is not well visualized. There is no evidence of pulmonic regurgitation. Pericardium: There is no pericardial effusion. Aorta: The aorta appears normal. Venous: The inferior vena cava appears normal in size. Contrast: Intravenous agitated saline contrast was used to assess intracardiac shunting. Measurements Chambers 2D Name Value Normal Range IVSd (2D) 1.09 cm (0.6 - 1.1) LVPWd (2D) 1.01 cm (0.6 - 1.1) LVIDd (2D) 4.56 cm (3.7 - 5.6) LVIDs (2D) 3.59 cm (2 - 3.8) LV FS (2D) 21.14 % - EF Teichholz (2D) 43.07 % - Ao root diameter (2D) 3.24 cm (2 - 3.7) Volumes/Mass Name Value Normal Range LA ESV SP 4CH (A/L) 37.93 ml - LA ESV SP 2CH (A/L) 41.62 ml - LA ESV BP (A/L) 45.32 ml - LA ESV BP (A/L) index 23.36 ml/m2 - LA ESV SP 4CH (MOD) 36.29 ml - LA ESV SP 2CH (MOD) 37.95 ml - LA ESV BP (MOD) 41.23 ml - LA ESV BP (MOD) index 21.25 ml/m2 - LV EDV SP 4CH (MOD) 116.7 ml - LV ESV SP 4CH (MOD) 47.19 ml - EF SP 4CH (MOD) 59.57 % - LV EDV SP 2CH (MOD) 116.94 ml - LV ESV SP 2CH (MOD) 52.32 ml - EF SP 2CH (MOD) 55.26 % - LV EDV BP 120.41 ml - LV ESV BP 50.4 ml - BP EF (MOD) 58 % - Diastolic/Systolic Function Name Value Normal Range MV E-wave Vmax 0.56 m/sec - MV deceleration time 202.65 msec - MV A-wave Vmax 0.96 m/sec - MV E:A ratio 0.59 ratio - Aortic Valve Name Value Normal Range AV Vmax 1.39 m/sec - AV VTI 25.04 cm - AV peak gradient 7.68 mmHg - AV mean gradient 3.87 mmHg - LVOT diameter 2.02 cm - LVOT Vmax 0.84 m/sec - LVOT VTI 15.67 cm - LVOT peak gradient 2.81 mmHg - LVOT mean gradient 1.37 mmHg - SV LVOT 50.43 ml - LATRICE (continuity Vmax) 1.95 cm2 - LATRICE (continuity VTI) 2.01 cm2 - Ascending Ao 3.18 cm - Tricuspid Valve Name Value Normal Range TR Vmax 1.05 m/sec - TR peak gradient 4.4 mmHg - RAP 3 mmHg - Pulmonic Valve/Qp:Qs Name Value Normal Range PV Vmax 1.12 m/sec - PV VTI 21.8 cm - PV peak gradient 5.03 mmHg - PV mean gradient 2.62 mmHg - RVOT Vmax 0.78 m/sec - RVOT VTI 11.5 cm - RVOT peak gradient 2.44 mmHg - [place]/IV: Voiding Method External Female Catheter IV Catheter Type [Right INT / Saline Lock Antecubital] IV Catheter Type [Left INT / Saline Lock Antecubital] IV Catheter Type [Left Forearm Peripheral IV ] Active Medications - Current Medications Current Medications: Generic Name Dose Route Start Last Admin Trade Name Freq PRN Reason Stop Dose Admin Amlodipine Besylate 5 mg 08/11/19 10:00 08/14/19 11:29 Amlodipine PO 5 mg QDAY JASBIR Administration Atorvastatin Calcium 80 mg 08/11/19 22:00 08/14/19 21:34 Lipitor PO 80 mg QHS JASBIR Administration Bisacodyl 10 mg 08/10/19 22:24 Dulcolax [place] QDAY PRN Constipation Clopidogrel Bisulfate 75 mg 08/11/19 10:00 08/14/19 11:29 Plavix PO 75 mg DAILY JASBIR Administration Enoxaparin Sodium 40 mg 08/11/19 10:00 08/14/19 11:29 Enoxaparin SUB-Q 40 mg QAM JASBIR Administration Hydralazine HCl 10 mg 08/10/19 22:29 08/11/19 04:20 Apresoline IV 10 mg Q6H PRN Administration Hypertension Hydralazine HCl 50 mg 08/11/19 09:00 08/15/19 05:24 Apresoline PO 50 mg Q8HR JASBIR Administration Ondansetron HCl 4 mg 08/10/19 22:24 Zofran IV Q8H PRN Nausea And Vomiting Sodium Chloride 10 ml 08/10/19 22:24 08/13/19 10:04 Sodium Chloride Flush Syringe 10 Ml IV 10 ml PRN PRN Administration LINE FLUSH
[2019-08-15] MEDS: ENOXAPARIN 40 MG/0.4 ML INJ SUB-Q SCH (10:17)
[2019-08-15] MEDS: CLOPIDOGREL 75 MG TAB PO SCH (10:18)
[2019-08-15] MEDS: amLODIPine 5 MG TAB PO SCH (10:18)
[2019-08-16] MEDS: hydrALAZINE 25 MG TAB PO SCH ×3 (05:47→21:58)
--- NOTE | 2019-08-16 08:54 | Progress Note ---
Assessment and Plan Assessment and plan: Acute ischemic stroke with right sided weakness Cont Plavix, statin IV hydralazine as needed for blood pressure control Consulted neurology, patient seen by Dr. Chun Physical and Occupational Therapy consulted Hypertensive urgency Start Norvasc IV hydralazine prn for blood pressure control Diabetes mellitus type 2 Check fingersticks, start sliding scale Anxiety/depression, stable DVT prophylaxis 08/12/19 Patient presented with right sided weakness. She is diagnosed with acute ischemic stroke. Neurology following. PT to see to determine disposition. 08/13/19 patient with acute ischemic stroke with right sided weakness. PT recommends acute rehab. She is medically stable for discharge 08/14/19 Patient with acute stroke. Awaiting transfer to Acute rehab. 08/15/19 patient with acute ischemic stroke. She is medically stable. Awaiting transfer to Acute rehab. 08/16/19 Patient medically stable. Awaiting acute rehab placement. Covid-19 test done result pending. History Interval history: Right sided weakness difficulty speech Hospitalist Physical - Physical exam Narrative exam: GEN: Not in acute distress, obese, lying in bed HEENT: Normocephalic, atraumatic, Neck: supple, No JVD Lungs: Clear to auscultation bilaterally, heart;S1 and S2 reg, no murmurs, rubs or gallop Abd:soft, non tender, non distended, normal bowel sounds, Ext: No edema, no clubbing, no cyanosis, Neuro: Awake,alert, right sided weakness, dysarthria, Psych: Calm. appropriate - Constitutional Vitals: Temp Pulse Resp BP Pulse Ox 98.4 F 84 18 149/75 97 08/16/19 05:21 08/16/19 05:47 08/16/19 05:21 08/16/19 05:47 08/16/19 05:21 Results - Labs CBC & Chem 7: 08/10/19 19:15 08/10/19 19:15 Labs: Laboratory Last Values WBC 9.0 K/mm3 (4.5-11.0) 08/10/19 19:15 RBC 4.92 M/mm3 (3.65-5.03) 08/10/19 19:15 Hgb 13.5 gm/dl (10.1-14.3) 08/10/19 19:15 Hct 41.0 % (30.3-42.9) 08/10/19 19:15 MCV 83 fl (79-97) 08/10/19 19:15 MCH 27 pg (28-32) L 08/10/19 19:15 MCHC 33 % (30-34) 08/10/19 19:15 RDW 15.0 % (13.2-15.2) 08/10/19 19:15 Plt Count 267 K/mm3 (140-440) 08/10/19 19:15 Lymph % (Auto) 31.4 % (13.4-35.0) 08/10/19 19:15 [place] % (Auto) 5.2 % (0.0-7.3) 08/10/19 19:15 Eos % (Auto) 0.5 % (0.0-4.3) 08/10/19 19:15 Baso % (Auto) 0.4 % (0.0-1.8) 08/10/19 19:15 Lymph # 2.8 K/mm3 (1.2-5.4) 08/10/19 19:15 [place] # 0.5 K/mm3 (0.0-0.8) 08/10/19 19:15 Eos # 0.0 K/mm3 (0.0-0.4) 08/10/19 19:15 Baso # 0.0 K/mm3 (0.0-0.1) 08/10/19 19:15 Seg Neutrophils % 62.5 % (40.0-70.0) 08/10/19 19:15 Seg Neutrophils # 5.6 K/mm3 (1.8-7.7) 08/10/19 19:15 PT 12.8 Sec. (12.2-14.9) 08/10/19 19:15 INR 0.95 (0.87-1.13) 08/10/19 19:15 APTT 24.5 Sec. (24.2-36.6) 08/10/19 19:15 Thrombin Time 18.6 Sec. (15.1-19.6) 08/10/19 19:15 Sodium 140 mmol/L (137-145) 08/10/19 19:15 Potassium 3.9 mmol/L (3.6-5.0) 08/10/19 19:15 Chloride 105.4 mmol/L (98-107) 08/10/19 19:15 Carbon Dioxide 22 mmol/L (22-30) 08/10/19 19:15 Anion Gap 17 mmol/L 08/10/19 19:15 BUN 15 mg/dL (7-17) 08/10/19 19:15 Creatinine 1.0 mg/dL (0.7-1.2) 08/10/19 19:15 Estimated GFR > 60 ml/min 08/10/19 19:15 BUN/Creatinine Ratio 15 % 08/10/19 19:15 Glucose 177 mg/dL (65-100) H 08/10/19 19:15 POC Glucose 129 (70-105) H 08/15/19 17:05 Calcium 9.0 mg/dL (8.4-10.2) 08/10/19 19:15 Total Bilirubin 0.30 mg/dL (0.1-1.2) 08/10/19 19:15 AST 26 units/L (5-40) 08/10/19 19:15 ALT 17 units/L (7-56) 08/10/19 19:15 Alkaline Phosphatase 56 units/L (35-129) 08/10/19 19:15 Ammonia 28.0 umol/L (25-60) 08/10/19 19:15 Total Creatine Kinase 87 units/L (30-135) 08/10/19 19:15 CK-MB (CK-2) 1.5 ng/mL (0.0-4.0) 08/10/19 19:15 CK-MB (CK-2) Rel Index 1.7 (0-4) 08/10/19 19:15 Troponin T < 0.010 ng/mL (0.00-0.029) 08/10/19 19:15 Total Protein 7.5 g/dL (6.3-8.2) 08/10/19 19:15 Albumin 2.8 g/dL (3.9-5) L 08/10/19 19:15 Albumin/Globulin Ratio 0.6 % 08/10/19 19:15 Triglycerides 89 mg/dL (2-149) 08/11/19 05:17 Cholesterol 238 mg/dL (50-199) H 08/11/19 05:17 LDL Cholesterol Direct 188 mg/dL (50-130) H 08/11/19 05:17 HDL Cholesterol 43 mg/dL (40-59) 08/11/19 05:17 Cholesterol/HDL Ratio 5.53 % 08/11/19 05:17 TSH 2.390 mlU/mL (0.270-4.200) 08/10/19 19:15 Urine Color Yellow (Yellow) 08/10/19 04:30 Urine Turbidity Clear (Clear) 08/10/19 04:30 Urine pH 7.0 (5.0-7.0) 08/10/19 04:30 Ur Specific [place] 1.049 (1.003-1.030) H 08/10/19 04:30 Urine Protein >500 mg/dL (Negative) 08/10/19 04:30 Urine Glucose (UA) Neg mg/dL (Negative) 08/10/19 04:30 Urine Ketones Tr mg/dL (Negative) 08/10/19 04:30 Urine Blood Neg (Negative) 08/10/19 04:30 Urine Nitrite Neg (Negative) 08/10/19 04:30 Urine Bilirubin Neg (Negative) 08/10/19 04:30 Urine Urobilinogen < 2.0 mg/dL (<2.0) 08/10/19 04:30 Ur Leukocyte Esterase Neg (Negative) 08/10/19 04:30 Urine WBC (Auto) 3.0 /HPF (0.0-6.0) 08/10/19 04:30 Urine RBC (Auto) 6.0 /HPF (0.0-6.0) 08/10/19 04:30 U Epithel Cells (Auto) 2.0 /HPF (0-13.0) 08/10/19 04:30 Urine Bacteria (Auto) 1+ /HPF (Negative) 08/10/19 04:30 Urine Mucus Few /HPF 08/10/19 04:30 Urine Opiates Screen Presumptive negative 08/10/19 04:30 Urine Methadone Screen Presumptive negative 08/10/19 04:30 Ur Barbiturates Screen Presumptive negative 08/10/19 04:30 Ur Phencyclidine Scrn Presumptive negative 08/10/19 04:30 Ur Amphetamines Screen Presumptive negative 08/10/19 04:30 U Benzodiazepines Scrn Presumptive negative 08/10/19 04:30 Urine Cocaine Screen Presumptive negative 08/10/19 04:30 U Marijuana (THC) Screen Presumptive negative 08/10/19 04:30 Drugs of Abuse Note Disclamer 08/10/19 04:30 Plasma/Serum Alcohol < 0.01 % (0-0.07) 08/10/19 19:15 Blood Type AB POSITIVE 08/10/19 19:15 Antibody Screen Negative 08/10/19 19:15 - Diagnostic Impressions Diagnostic Impressions: Echocardiogram 08/10/19 22:26 Transthoracic Echocardiogram Indication: Stroke BP: 192/100 HR: 76 Conclusions *Global left ventricular wall motion and contractility are within normal limits. *The estimated ejection fraction is 55-60%. *Abnormal left ventricular diastolic filling is observed, consistent with impaired relaxation. *The right ventricular global systolic function is normal. *No atrial septal defected is demonstrated by agitated saline contrast. *There is no evidence of aortic regurgitation. *There is no evidence of mitral regurgitation. *There is trace tricuspid regurgitation. *There is no evidence of pulmonic regurgitation. Findings Left Ventricle: The left ventricular chamber size is normal. Global left ventricular wall motion and contractility are within normal limits. Global left ventricular systolic function is normal. The estimated ejection fraction is 55-60%. Abnormal left ventricular diastolic filling is observed, consistent with impaired relaxation. Left Atrium: The left atrial chamber size is normal. Right Ventricle: The right ventricular cavity size is normal. The right ventricular global systolic function is normal. Right Atrium: The right atrial cavity size is normal. No atrial septal defected is demonstrated by agitated saline contrast. Aortic Valve: The aortic valve structure is normal. There is no evidence of aortic regurgitation. Mitral Valve: The mitral valve leaflets are mildly thickened. There is no evidence of mitral regurgitation. Tricuspid Valve: The tricuspid valve leaflets are normal. There is trace tricuspid regurgitation. Pulmonic Valve: The pulmonic valve is not well visualized. There is no evidence of pulmonic regurgitation. Pericardium: There is no pericardial effusion. Aorta: The aorta appears normal. Venous: The inferior vena cava appears normal in size. Contrast: Intravenous agitated saline contrast was used to assess intracardiac shunting. Measurements Chambers 2D Name Value Normal Range IVSd (2D) 1.09 cm (0.6 - 1.1) LVPWd (2D) 1.01 cm (0.6 - 1.1) LVIDd (2D) 4.56 cm (3.7 - 5.6) LVIDs (2D) 3.59 cm (2 - 3.8) LV FS (2D) 21.14 % - EF Teichholz (2D) 43.07 % - Ao root diameter (2D) 3.24 cm (2 - 3.7) Volumes/Mass Name Value Normal Range LA ESV SP 4CH (A/L) 37.93 ml - LA ESV SP 2CH (A/L) 41.62 ml - LA ESV BP (A/L) 45.32 ml - LA ESV BP (A/L) index 23.36 ml/m2 - LA ESV SP 4CH (MOD) 36.29 ml - LA ESV SP 2CH (MOD) 37.95 ml - LA ESV BP (MOD) 41.23 ml - LA ESV BP (MOD) index 21.25 ml/m2 - LV EDV SP 4CH (MOD) 116.7 ml - LV ESV SP 4CH (MOD) 47.19 ml - EF SP 4CH (MOD) 59.57 % - LV EDV SP 2CH (MOD) 116.94 ml - LV ESV SP 2CH (MOD) 52.32 ml - EF SP 2CH (MOD) 55.26 % - LV EDV BP 120.41 ml - LV ESV BP 50.4 ml - BP EF (MOD) 58 % - Diastolic/Systolic Function Name Value Normal Range MV E-wave Vmax 0.56 m/sec - MV deceleration time 202.65 msec - MV A-wave Vmax 0.96 m/sec - MV E:A ratio 0.59 ratio - Aortic Valve Name Value Normal Range AV Vmax 1.39 m/sec - AV VTI 25.04 cm - AV peak gradient 7.68 mmHg - AV mean gradient 3.87 mmHg - LVOT diameter 2.02 cm - LVOT Vmax 0.84 m/sec - LVOT VTI 15.67 cm - LVOT peak gradient 2.81 mmHg - LVOT mean gradient 1.37 mmHg - SV LVOT 50.43 ml - LATRICE (continuity Vmax) 1.95 cm2 - LATRICE (continuity VTI) 2.01 cm2 - Ascending Ao 3.18 cm - Tricuspid Valve Name Value Normal Range TR Vmax 1.05 m/sec - TR peak gradient 4.4 mmHg - RAP 3 mmHg - Pulmonic Valve/Qp:Qs Name Value Normal Range PV Vmax 1.12 m/sec - PV VTI 21.8 cm - PV peak gradient 5.03 mmHg - PV mean gradient 2.62 mmHg - RVOT Vmax 0.78 m/sec - RVOT VTI 11.5 cm - RVOT peak gradient 2.44 mmHg - [place]/IV: Voiding Method External Female Catheter IV Catheter Type [Right INT / Saline Lock Antecubital] IV Catheter Type [Left INT / Saline Lock Antecubital] IV Catheter Type [Left Forearm Peripheral IV ] Active Medications - Current Medications Current Medications: Generic Name Dose Route Start Last Admin Trade Name Freq PRN Reason Stop Dose Admin Amlodipine Besylate 5 mg 08/11/19 10:00 08/15/19 10:18 Amlodipine PO 5 mg QDAY JASBIR Administration Atorvastatin Calcium 80 mg 08/11/19 22:00 08/15/19 21:47 Lipitor PO 80 mg QHS JASBIR Administration Bisacodyl 10 mg 08/10/19 22:24 Dulcolax [place] QDAY PRN Constipation Clopidogrel Bisulfate 75 mg 08/11/19 10:00 08/15/19 10:18 Plavix PO 75 mg DAILY JASBIR Administration Enoxaparin Sodium 40 mg 08/11/19 10:00 08/15/19 10:17 Enoxaparin SUB-Q 40 mg QAM JASBIR Administration Hydralazine HCl 10 mg 08/10/19 22:29 08/11/19 04:20 Apresoline IV 10 mg Q6H PRN Administration Hypertension Hydralazine HCl 50 mg 08/11/19 09:00 08/16/19 05:47 Apresoline PO 50 mg Q8HR JASBIR Administration Ondansetron HCl 4 mg 08/10/19 22:24 Zofran IV Q8H PRN Nausea And Vomiting Sodium Chloride 10 ml 08/10/19 22:24 08/15/19 10:18 Sodium Chloride Flush Syringe 10 Ml IV 10 ml PRN PRN Administration LINE FLUSH
[2019-08-16] MEDS: amLODIPine 5 MG TAB PO SCH (11:09)
[2019-08-16] MEDS: CLOPIDOGREL 75 MG TAB PO SCH (11:10)
[2019-08-16] MEDS: ENOXAPARIN 40 MG/0.4 ML INJ SUB-Q SCH (11:10)
--- NOTE | 2019-08-16 16:16 | Progress Note ---
Subjective Date of service: 08/16/19 Interval history: PT / OT working with patient and she is making progress IMO Objective - Vital Sign Vital Signs - 12hr 08/16/19 08/16/19 08/16/19 05:21 05:47 08:16 Temperature 98.4 F 98.9 F Pulse Rate 80 84 82 Respiratory 18 18 Rate Blood Pressure 149/75 149/75 136/69 O2 Sat by Pulse 97 99 Oximetry 08/16/19 08/16/19 11:04 15:22 Temperature Pulse Rate Respiratory Rate Blood Pressure 150/78 143/76 O2 Sat by Pulse Oximetry - Laboratory Findings CBC and BMP: 08/10/19 19:15 08/10/19 19:15 Abnormal Lab Findings: Abnormal Labs 08/10/19 08/10/19 08/10/19 04:30 19:15 19:15 MCH 27 L Glucose 177 H POC Glucose Albumin 2.8 L Cholesterol LDL Cholesterol Direct Ur Specific [place] 1.049 H 08/11/19 08/12/19 08/12/19 05:17 08:41 12:40 MCH Glucose POC Glucose 119 H 174 H Albumin Cholesterol 238 H LDL Cholesterol Direct 188 H Ur Specific [place] 08/12/19 08/12/19 08/13/19 16:28 20:06 23:13 MCH Glucose POC Glucose 158 H 152 H 150 H Albumin Cholesterol LDL Cholesterol Direct Ur Specific [place] 08/14/19 08/14/19 08/14/19 08:13 11:38 16:31 MCH Glucose POC Glucose 146 H 158 H 177 H Albumin Cholesterol LDL Cholesterol Direct Ur Specific [place] 08/14/19 08/15/19 08/15/19 22:09 08:19 11:27 MCH Glucose POC Glucose 117 H 120 H 130 H Albumin Cholesterol LDL Cholesterol Direct Ur Specific [place] 08/15/19 17:05 MCH Glucose POC Glucose 129 H Albumin Cholesterol LDL Cholesterol Direct Ur Specific [place]
[2019-08-17] MEDS: hydrALAZINE 25 MG TAB PO SCH ×3 (05:34→21:17)
[2019-08-17] MEDS: amLODIPine 5 MG TAB PO SCH (09:23)
[2019-08-17] MEDS: CLOPIDOGREL 75 MG TAB PO SCH (09:23)
[2019-08-17] MEDS: ENOXAPARIN 40 MG/0.4 ML INJ SUB-Q SCH (09:23)
--- NOTE | 2019-08-17 14:04 | Progress Note ---
Assessment and Plan Assessment and plan: Acute ischemic stroke with right sided weakness Cont Plavix, statin IV hydralazine as needed for blood pressure control Consulted neurology, patient seen by Dr. Chun Physical and Occupational Therapy consulted Hypertensive urgency Start Norvasc IV hydralazine prn for blood pressure control Diabetes mellitus type 2 Check fingersticks, start sliding scale Anxiety/depression, stable DVT prophylaxis 08/12/19 Patient presented with right sided weakness. She is diagnosed with acute ischemic stroke. Neurology following. PT to see to determine disposition. 08/13/19 patient with acute ischemic stroke with right sided weakness. PT recommends acute rehab. She is medically stable for discharge 08/14/19 Patient with acute stroke. Awaiting transfer to Acute rehab. 08/15/19 patient with acute ischemic stroke. She is medically stable. Awaiting transfer to Acute rehab. 08/16/19 Patient medically stable. Awaiting acute rehab placement. Covid-19 test done result pending. 08/17/19 Patient with acute ischemic stroke. She is medically stable. Awaiting placement acute rehab. History Interval history: Right sided weakness difficulty speech Hospitalist Physical - Physical exam Narrative exam: GEN: Not in acute distress, obese, lying in bed HEENT: Normocephalic, atraumatic, Neck: supple, No JVD Lungs: Clear to auscultation bilaterally, heart;S1 and S2 reg, no murmurs, rubs or gallop Abd:soft, non tender, non distended, normal bowel sounds, Ext: No edema, no clubbing, no cyanosis, Neuro: Awake,alert, right sided weakness, dysarthria, Psych: Calm. appropriate - Constitutional Vitals: Temp Pulse Resp BP Pulse Ox 98.2 F 71 18 131/78 98 08/17/19 05:06 08/17/19 13:21 08/17/19 09:33 08/17/19 13:21 08/17/19 09:33 Results - Labs CBC & Chem 7: 08/10/19 19:15 08/10/19 19:15 Labs: Laboratory Last Values WBC 9.0 K/mm3 (4.5-11.0) 08/10/19 19:15 RBC 4.92 M/mm3 (3.65-5.03) 08/10/19 19:15 Hgb 13.5 gm/dl (10.1-14.3) 08/10/19 19:15 Hct 41.0 % (30.3-42.9) 08/10/19 19:15 MCV 83 fl (79-97) 08/10/19 19:15 MCH 27 pg (28-32) L 08/10/19 19:15 MCHC 33 % (30-34) 08/10/19 19:15 RDW 15.0 % (13.2-15.2) 08/10/19 19:15 Plt Count 267 K/mm3 (140-440) 08/10/19 19:15 Lymph % (Auto) 31.4 % (13.4-35.0) 08/10/19 19:15 [place] % (Auto) 5.2 % (0.0-7.3) 08/10/19 19:15 Eos % (Auto) 0.5 % (0.0-4.3) 08/10/19 19:15 Baso % (Auto) 0.4 % (0.0-1.8) 08/10/19 19:15 Lymph # 2.8 K/mm3 (1.2-5.4) 08/10/19 19:15 [place] # 0.5 K/mm3 (0.0-0.8) 08/10/19 19:15 Eos # 0.0 K/mm3 (0.0-0.4) 08/10/19 19:15 Baso # 0.0 K/mm3 (0.0-0.1) 08/10/19 19:15 Seg Neutrophils % 62.5 % (40.0-70.0) 08/10/19 19:15 Seg Neutrophils # 5.6 K/mm3 (1.8-7.7) 08/10/19 19:15 PT 12.8 Sec. (12.2-14.9) 08/10/19 19:15 INR 0.95 (0.87-1.13) 08/10/19 19:15 APTT 24.5 Sec. (24.2-36.6) 08/10/19 19:15 Thrombin Time 18.6 Sec. (15.1-19.6) 08/10/19 19:15 Sodium 140 mmol/L (137-145) 08/10/19 19:15 Potassium 3.9 mmol/L (3.6-5.0) 08/10/19 19:15 Chloride 105.4 mmol/L (98-107) 08/10/19 19:15 Carbon Dioxide 22 mmol/L (22-30) 08/10/19 19:15 Anion Gap 17 mmol/L 08/10/19 19:15 BUN 15 mg/dL (7-17) 08/10/19 19:15 Creatinine 1.0 mg/dL (0.7-1.2) 08/10/19 19:15 Estimated GFR > 60 ml/min 08/10/19 19:15 BUN/Creatinine Ratio 15 % 08/10/19 19:15 Glucose 177 mg/dL (65-100) H 08/10/19 19:15 POC Glucose 108 (70-105) H 08/16/19 21:37 Calcium 9.0 mg/dL (8.4-10.2) 08/10/19 19:15 Total Bilirubin 0.30 mg/dL (0.1-1.2) 08/10/19 19:15 AST 26 units/L (5-40) 08/10/19 19:15 ALT 17 units/L (7-56) 08/10/19 19:15 Alkaline Phosphatase 56 units/L (35-129) 08/10/19 19:15 Ammonia 28.0 umol/L (25-60) 08/10/19 19:15 Total Creatine Kinase 87 units/L (30-135) 08/10/19 19:15 CK-MB (CK-2) 1.5 ng/mL (0.0-4.0) 08/10/19 19:15 CK-MB (CK-2) Rel Index 1.7 (0-4) 08/10/19 19:15 Troponin T < 0.010 ng/mL (0.00-0.029) 08/10/19 19:15 Total Protein 7.5 g/dL (6.3-8.2) 08/10/19 19:15 Albumin 2.8 g/dL (3.9-5) L 08/10/19 19:15 Albumin/Globulin Ratio 0.6 % 08/10/19 19:15 Triglycerides 89 mg/dL (2-149) 08/11/19 05:17 Cholesterol 238 mg/dL (50-199) H 08/11/19 05:17 LDL Cholesterol Direct 188 mg/dL (50-130) H 08/11/19 05:17 HDL Cholesterol 43 mg/dL (40-59) 08/11/19 05:17 Cholesterol/HDL Ratio 5.53 % 08/11/19 05:17 TSH 2.390 mlU/mL (0.270-4.200) 08/10/19 19:15 Urine Color Yellow (Yellow) 08/10/19 04:30 Urine Turbidity Clear (Clear) 08/10/19 04:30 Urine pH 7.0 (5.0-7.0) 08/10/19 04:30 Ur Specific [place] 1.049 (1.003-1.030) H 08/10/19 04:30 Urine Protein >500 mg/dL (Negative) 08/10/19 04:30 Urine Glucose (UA) Neg mg/dL (Negative) 08/10/19 04:30 Urine Ketones Tr mg/dL (Negative) 08/10/19 04:30 Urine Blood Neg (Negative) 08/10/19 04:30 Urine Nitrite Neg (Negative) 08/10/19 04:30 Urine Bilirubin Neg (Negative) 08/10/19 04:30 Urine Urobilinogen < 2.0 mg/dL (<2.0) 08/10/19 04:30 Ur Leukocyte Esterase Neg (Negative) 08/10/19 04:30 Urine WBC (Auto) 3.0 /HPF (0.0-6.0) 08/10/19 04:30 Urine RBC (Auto) 6.0 /HPF (0.0-6.0) 08/10/19 04:30 U Epithel Cells (Auto) 2.0 /HPF (0-13.0) 08/10/19 04:30 Urine Bacteria (Auto) 1+ /HPF (Negative) 08/10/19 04:30 Urine Mucus Few /HPF 08/10/19 04:30 Urine Opiates Screen Presumptive negative 08/10/19 04:30 Urine Methadone Screen Presumptive negative 08/10/19 04:30 Ur Barbiturates Screen Presumptive negative 08/10/19 04:30 Ur Phencyclidine Scrn Presumptive negative 08/10/19 04:30 Ur Amphetamines Screen Presumptive negative 08/10/19 04:30 U Benzodiazepines Scrn Presumptive negative 08/10/19 04:30 Urine Cocaine Screen Presumptive negative 08/10/19 04:30 U Marijuana (THC) Screen Presumptive negative 08/10/19 04:30 Drugs of Abuse Note Disclamer 08/10/19 04:30 Plasma/Serum Alcohol < 0.01 % (0-0.07) 08/10/19 19:15 Coronavirus (PCR) Negative (Negative) 08/14/19 Unknown Blood Type AB POSITIVE 08/10/19 19:15 Antibody Screen Negative 08/10/19 19:15 - Diagnostic Impressions Diagnostic Impressions: Echocardiogram 08/10/19 22:26 Transthoracic Echocardiogram Indication: Stroke BP: 192/100 HR: 76 Conclusions *Global left ventricular wall motion and contractility are within normal limits. *The estimated ejection fraction is 55-60%. *Abnormal left ventricular diastolic filling is observed, consistent with impaired relaxation. *The right ventricular global systolic function is normal. *No atrial septal defected is demonstrated by agitated saline contrast. *There is no evidence of aortic regurgitation. *There is no evidence of mitral regurgitation. *There is trace tricuspid regurgitation. *There is no evidence of pulmonic regurgitation. Findings Left Ventricle: The left ventricular chamber size is normal. Global left ventricular wall motion and contractility are within normal limits. Global left ventricular systolic function is normal. The estimated ejection fraction is 55-60%. Abnormal left ventricular diastolic filling is observed, consistent with impaired relaxation. Left Atrium: The left atrial chamber size is normal. Right Ventricle: The right ventricular cavity size is normal. The right ventricular global systolic function is normal. Right Atrium: The right atrial cavity size is normal. No atrial septal defected is demonstrated by agitated saline contrast. Aortic Valve: The aortic valve structure is normal. There is no evidence of aortic regurgitation. Mitral Valve: The mitral valve leaflets are mildly thickened. There is no evidence of mitral regurgitation. Tricuspid Valve: The tricuspid valve leaflets are normal. There is trace tricuspid regurgitation. Pulmonic Valve: The pulmonic valve is not well visualized. There is no evidence of pulmonic regurgitation. Pericardium: There is no pericardial effusion. Aorta: The aorta appears normal. Venous: The inferior vena cava appears normal in size. Contrast: Intravenous agitated saline contrast was used to assess intracardiac shunting. Measurements Chambers 2D Name Value Normal Range IVSd (2D) 1.09 cm (0.6 - 1.1) LVPWd (2D) 1.01 cm (0.6 - 1.1) LVIDd (2D) 4.56 cm (3.7 - 5.6) LVIDs (2D) 3.59 cm (2 - 3.8) LV FS (2D) 21.14 % - EF Teichholz (2D) 43.07 % - Ao root diameter (2D) 3.24 cm (2 - 3.7) Volumes/Mass Name Value Normal Range LA ESV SP 4CH (A/L) 37.93 ml - LA ESV SP 2CH (A/L) 41.62 ml - LA ESV BP (A/L) 45.32 ml - LA ESV BP (A/L) index 23.36 ml/m2 - LA ESV SP 4CH (MOD) 36.29 ml - LA ESV SP 2CH (MOD) 37.95 ml - LA ESV BP (MOD) 41.23 ml - LA ESV BP (MOD) index 21.25 ml/m2 - LV EDV SP 4CH (MOD) 116.7 ml - LV ESV SP 4CH (MOD) 47.19 ml - EF SP 4CH (MOD) 59.57 % - LV EDV SP 2CH (MOD) 116.94 ml - LV ESV SP 2CH (MOD) 52.32 ml - EF SP 2CH (MOD) 55.26 % - LV EDV BP 120.41 ml - LV ESV BP 50.4 ml - BP EF (MOD) 58 % - Diastolic/Systolic Function Name Value Normal Range MV E-wave Vmax 0.56 m/sec - MV deceleration time 202.65 msec - MV A-wave Vmax 0.96 m/sec - MV E:A ratio 0.59 ratio - Aortic Valve Name Value Normal Range AV Vmax 1.39 m/sec - AV VTI 25.04 cm - AV peak gradient 7.68 mmHg - AV mean gradient 3.87 mmHg - LVOT diameter 2.02 cm - LVOT Vmax 0.84 m/sec - LVOT VTI 15.67 cm - LVOT peak gradient 2.81 mmHg - LVOT mean gradient 1.37 mmHg - SV LVOT 50.43 ml - LATRICE (continuity Vmax) 1.95 cm2 - LATRICE (continuity VTI) 2.01 cm2 - Ascending Ao 3.18 cm - Tricuspid Valve Name Value Normal Range TR Vmax 1.05 m/sec - TR peak gradient 4.4 mmHg - RAP 3 mmHg - Pulmonic Valve/Qp:Qs Name Value Normal Range PV Vmax 1.12 m/sec - PV VTI 21.8 cm - PV peak gradient 5.03 mmHg - PV mean gradient 2.62 mmHg - RVOT Vmax 0.78 m/sec - RVOT VTI 11.5 cm - RVOT peak gradient 2.44 mmHg - Howard/IV: Voiding Method External Female Catheter IV Catheter Type [Right INT / Saline Lock Antecubital] IV Catheter Type [Left INT / Saline Lock Antecubital] IV Catheter Type [Left Forearm Peripheral IV ] Active Medications - Current Medications Current Medications: Generic Name Dose Route Start Last Admin Trade Name Freq PRN Reason Stop Dose Admin Amlodipine Besylate 5 mg 08/11/19 10:00 08/17/19 09:23 Amlodipine PO 5 mg QDAY JASBIR Administration Atorvastatin Calcium 80 mg 08/11/19 22:00 08/16/19 21:58 Lipitor PO 80 mg QHS JASBIR Administration Bisacodyl 10 mg 08/10/19 22:24 Dulcolax CA QDAY PRN Constipation Clopidogrel Bisulfate 75 mg 08/11/19 10:00 08/17/19 09:23 Plavix PO 75 mg DAILY JASBIR Administration Enoxaparin Sodium 40 mg 08/11/19 10:00 08/17/19 09:23 Enoxaparin SUB-Q 40 mg QAM JASBIR Administration Hydralazine HCl 10 mg 08/10/19 22:29 08/11/19 04:20 Apresoline IV 10 mg Q6H PRN Administration Hypertension Hydralazine HCl 50 mg 08/11/19 09:00 08/17/19 13:21 Apresoline PO 50 mg Q8HR JASBIR Administration Ondansetron HCl 4 mg 08/10/19 22:24 Zofran IV Q8H PRN Nausea And Vomiting Sodium Chloride 10 ml 08/10/19 22:24 08/16/19 21:59 Sodium Chloride Flush Syringe 10 Ml IV 10 ml PRN PRN Administration LINE FLUSH Nutrition/Malnutrition Assess - Dietary Evaluation Nutrition/Malnutrition Findings: Nutrition Notes Start: 08/17/19 13:44 Freq: Status: Active Protocol: Document 08/17/19 13:44 LM (Rec: 08/17/19 13:58 LM [id number]) Nutrition Notes Need for Assessment generated from: LOS Initial or Follow up Assessment Current Diagnosis Diabetes,Hypertension Other Pertinent Diagnosis anxiety/depression Current Diet mechanical soft/consistent CHO Labs/Tests Reviewed Pertinent Medications Reviewed Height 5 ft 6 in Weight 84.6 kg [place] Body Weight (kg) 59.09 BMI 30.1 Weight Status Obese Subjective/Other Information Screen for LOS. Pt stated she needs help opening food items on her tray. Pt stated when she has to open items she feels like she cannot finish all of her food afterwards. Informed pt to have tech help her and informed kitchen of pt 's concern. Pt stated she has not had any wt loss and is unaware of UBW. Pt would like Glucerna. Burn Absent Trauma Absent GI Symptoms None Current % PO Fair (50-74%) Minimum of two criteria No physical signs of malnutrition #1 Nutrition Diagnosis Inadequate oral intake Etiology Pt needing assistance with opening food items As Evidenced by Signs and Symptoms pt with 50% intake Is patient on ventilator? No Is Patient Ambulatory and/or Out of Bed No REE-([place]-St. Jeor-confined to bed) [phone] Calculation Used for Recommendations [place]-St Jeor Additional Notes Protein: 72-86g (1-1.2g/kg using AdjBW 72kg) Fluid: 1 ml/kcal Nutrition Intervention Change Diet Order: Continue Add Supplement/Snack (indicate name/kcal Glucerna daily /protein ) Provides kCal: 220 Provides Protein (gm) 10 Goal #1 Meet at least 75% of energy and protein needs Anticipated Discharge Needs: cardiac/consistent CHO/mech soft Follow-Up By: 08/19/19 Additional Comments F/U for intakes
[2019-08-18 04:34] LABS: Hematocrit 39.8 % (30.3-42.9); Hemoglobin 13.3 gm/dl (10.1-14.3); Mean Corpuscular HGB Conc 34 % (30-34); Mean Corpuscular Volume 84 fl (79-97); Platelet Count 236 K/mm3 (140-440); Red Blood Count 4.77 M/mm3 (3.65-5.03); Red Cell Distribution Width 14.6 % (13.2-15.2)
[2019-08-18 04:47] LABS: BUN/Creatinine Ratio 25; Blood Urea Nitrogen 25 mg/dL (7-17); Calcium 8.7 mg/dL (8.4-10.2); Hemolysis Index 6
[2019-08-18] MEDS: hydrALAZINE 25 MG TAB PO SCH ×3 (06:37→22:34)
[2019-08-18] MEDS: CLOPIDOGREL 75 MG TAB PO SCH (09:58)
[2019-08-18] MEDS: amLODIPine 5 MG TAB PO SCH (09:59)
[2019-08-18] MEDS: ENOXAPARIN 40 MG/0.4 ML INJ SUB-Q SCH (09:59)
--- NOTE | 2019-08-18 12:58 | Progress Note ---
Assessment and Plan Assessment and plan: Acute ischemic stroke with right sided weakness Cont Plavix, statin IV hydralazine as needed for blood pressure control Consulted neurology, patient seen by Dr. Chun Physical and Occupational Therapy consulted Hypertensive urgency Continue Norvasc IV hydralazine prn for blood pressure control Diabetes mellitus type 2 Check fingersticks, start sliding scale Anxiety/depression, stable DVT prophylaxis 08/12/19 Patient presented with right sided weakness. She is diagnosed with acute ischemic stroke. Neurology following. PT to see to determine disposition. 08/13/19 patient with acute ischemic stroke with right sided weakness. PT recommends acute rehab. She is medically stable for discharge 08/14/19 Patient with acute stroke. Awaiting transfer to Acute rehab. 08/15/19 patient with acute ischemic stroke. She is medically stable. Awaiting transfer to Acute rehab. 08/16/19 Patient medically stable. Awaiting acute rehab placement. Covid-19 test done result pending. 08/17/19 Patient with acute ischemic stroke. She is medically stable. Awaiting placement acute rehab. 08/18/2019 Patient with acute ischemic stroke. She is medically stable. Awaiting placement acute rehab. History Interval history: No new issues overnight. Hospitalist Physical - Constitutional Vitals: Temp Pulse Resp BP Pulse Ox 98.4 F 72 18 129/73 100 08/18/19 12:02 08/18/19 12:02 08/18/19 12:02 08/18/19 12:02 08/18/19 12:02 General appearance: Present: no acute distress, well-nourished - EENT Eyes: Present: PERRL, EOM intact ENT: hearing intact, clear oral mucosa, dentition normal - Neck Neck: Present: supple, normal ROM - Respiratory Respiratory effort: normal Respiratory: bilateral: CTA - Cardiovascular Rhythm: regular Heart Sounds: Present: S1 & S2. Absent: gallop, rub - Extremities Extremities: no ischemia, No edema, Full ROM - Abdominal General gastrointestinal: soft, non-tender, non-distended, normal bowel sounds - Integumentary Integumentary: Present: clear, warm, dry - Neurologic Neurologic: CNII-XII intact, moves all extremities Results - Labs CBC & Chem 7: 08/18/19 04:05 08/18/19 04:05 Labs: Laboratory Last Values WBC 8.2 K/mm3 (4.5-11.0) 08/18/19 04:05 RBC 4.77 M/mm3 (3.65-5.03) 08/18/19 04:05 Hgb 13.3 gm/dl (10.1-14.3) 08/18/19 04:05 Hct 39.8 % (30.3-42.9) 08/18/19 04:05 MCV 84 fl (79-97) 08/18/19 04:05 MCH 28 pg (28-32) 08/18/19 04:05 MCHC 34 % (30-34) 08/18/19 04:05 RDW 14.6 % (13.2-15.2) 08/18/19 04:05 Plt Count 236 K/mm3 (140-440) 08/18/19 04:05 Lymph % (Auto) 31.4 % (13.4-35.0) 08/10/19 19:15 Norton % (Auto) 5.2 % (0.0-7.3) 08/10/19 19:15 Eos % (Auto) 0.5 % (0.0-4.3) 08/10/19 19:15 Baso % (Auto) 0.4 % (0.0-1.8) 08/10/19 19:15 Lymph # 2.8 K/mm3 (1.2-5.4) 08/10/19 19:15 Norton # 0.5 K/mm3 (0.0-0.8) 08/10/19 19:15 Eos # 0.0 K/mm3 (0.0-0.4) 08/10/19 19:15 Baso # 0.0 K/mm3 (0.0-0.1) 08/10/19 19:15 Seg Neutrophils % 62.5 % (40.0-70.0) 08/10/19 19:15 Seg Neutrophils # 5.6 K/mm3 (1.8-7.7) 08/10/19 19:15 PT 12.8 Sec. (12.2-14.9) 08/10/19 19:15 INR 0.95 (0.87-1.13) 08/10/19 19:15 APTT 24.5 Sec. (24.2-36.6) 08/10/19 19:15 Thrombin Time 18.6 Sec. (15.1-19.6) 08/10/19 19:15 Sodium 136 mmol/L (137-145) L 08/18/19 04:05 Potassium 3.6 mmol/L (3.6-5.0) 08/18/19 04:05 Chloride 101.4 mmol/L (98-107) 08/18/19 04:05 Carbon Dioxide 22 mmol/L (22-30) 08/18/19 04:05 Anion Gap 16 mmol/L 08/18/19 04:05 BUN 25 mg/dL (7-17) H 08/18/19 04:05 Creatinine 1.0 mg/dL (0.7-1.2) 08/18/19 04:05 Estimated GFR > 60 ml/min 08/18/19 04:05 BUN/Creatinine Ratio 25 % 08/18/19 04:05 Glucose 133 mg/dL (65-100) H 08/18/19 04:05 POC Glucose 108 (70-105) H 08/16/19 21:37 Calcium 8.7 mg/dL (8.4-10.2) 08/18/19 04:05 Total Bilirubin 0.30 mg/dL (0.1-1.2) 08/10/19 19:15 AST 26 units/L (5-40) 08/10/19 19:15 ALT 17 units/L (7-56) 08/10/19 19:15 Alkaline Phosphatase 56 units/L (35-129) 08/10/19 19:15 Ammonia 28.0 umol/L (25-60) 08/10/19 19:15 Total Creatine Kinase 87 units/L (30-135) 08/10/19 19:15 CK-MB (CK-2) 1.5 ng/mL (0.0-4.0) 08/10/19 19:15 CK-MB (CK-2) Rel Index 1.7 (0-4) 08/10/19 19:15 Troponin T < 0.010 ng/mL (0.00-0.029) 08/10/19 19:15 Total Protein 7.5 g/dL (6.3-8.2) 08/10/19 19:15 Albumin 2.8 g/dL (3.9-5) L 08/10/19 19:15 Albumin/Globulin Ratio 0.6 % 08/10/19 19:15 Triglycerides 89 mg/dL (2-149) 08/11/19 05:17 Cholesterol 238 mg/dL (50-199) H 08/11/19 05:17 LDL Cholesterol Direct 188 mg/dL (50-130) H 08/11/19 05:17 HDL Cholesterol 43 mg/dL (40-59) 08/11/19 05:17 Cholesterol/HDL Ratio 5.53 % 08/11/19 05:17 TSH 2.390 mlU/mL (0.270-4.200) 08/10/19 19:15 Urine Color Yellow (Yellow) 08/10/19 04:30 Urine Turbidity Clear (Clear) 08/10/19 04:30 Urine pH 7.0 (5.0-7.0) 08/10/19 04:30 Ur Specific [place] 1.049 (1.003-1.030) H 08/10/19 04:30 Urine Protein >500 mg/dL (Negative) 08/10/19 04:30 Urine Glucose (UA) Neg mg/dL (Negative) 08/10/19 04:30 Urine Ketones Tr mg/dL (Negative) 08/10/19 04:30 Urine Blood Neg (Negative) 08/10/19 04:30 Urine Nitrite Neg (Negative) 08/10/19 04:30 Urine Bilirubin Neg (Negative) 08/10/19 04:30 Urine Urobilinogen < 2.0 mg/dL (<2.0) 08/10/19 04:30 Ur Leukocyte Esterase Neg (Negative) 08/10/19 04:30 Urine WBC (Auto) 3.0 /HPF (0.0-6.0) 08/10/19 04:30 Urine RBC (Auto) 6.0 /HPF (0.0-6.0) 08/10/19 04:30 U Epithel Cells (Auto) 2.0 /HPF (0-13.0) 08/10/19 04:30 Urine Bacteria (Auto) 1+ /HPF (Negative) 08/10/19 04:30 Urine Mucus Few /HPF 08/10/19 04:30 Urine Opiates Screen Presumptive negative 08/10/19 04:30 Urine Methadone Screen Presumptive negative 08/10/19 04:30 Ur Barbiturates Screen Presumptive negative 08/10/19 04:30 Ur Phencyclidine Scrn Presumptive negative 08/10/19 04:30 Ur Amphetamines Screen Presumptive negative 08/10/19 04:30 U Benzodiazepines Scrn Presumptive negative 08/10/19 04:30 Urine Cocaine Screen Presumptive negative 08/10/19 04:30 U Marijuana (THC) Screen Presumptive negative 08/10/19 04:30 Drugs of Abuse Note Disclamer 08/10/19 04:30 Plasma/Serum Alcohol < 0.01 % (0-0.07) 08/10/19 19:15 Coronavirus (PCR) Negative (Negative) 08/14/19 Unknown Blood Type AB POSITIVE 08/10/19 19:15 Antibody Screen Negative 08/10/19 19:15 - Diagnostic Impressions Diagnostic Impressions: Echocardiogram 08/10/19 22:26 Transthoracic Echocardiogram Indication: Stroke BP: 192/100 HR: 76 Conclusions *Global left ventricular wall motion and contractility are within normal limits. *The estimated ejection fraction is 55-60%. *Abnormal left ventricular diastolic filling is observed, consistent with impaired relaxation. *The right ventricular global systolic function is normal. *No atrial septal defected is demonstrated by agitated saline contrast. *There is no evidence of aortic regurgitation. *There is no evidence of mitral regurgitation. *There is trace tricuspid regurgitation. *There is no evidence of pulmonic regurgitation. Findings Left Ventricle: The left ventricular chamber size is normal. Global left ventricular wall motion and contractility are within normal limits. Global left ventricular systolic function is normal. The estimated ejection fraction is 55-60%. Abnormal left ventricular diastolic filling is observed, consistent with impaired relaxation. Left Atrium: The left atrial chamber size is normal. Right Ventricle: The right ventricular cavity size is normal. The right ventricular global systolic function is normal. Right Atrium: The right atrial cavity size is normal. No atrial septal defected is demonstrated by agitated saline contrast. Aortic Valve: The aortic valve structure is normal. There is no evidence of aortic regurgitation. Mitral Valve: The mitral valve leaflets are mildly thickened. There is no evidence of mitral regurgitation. Tricuspid Valve: The tricuspid valve leaflets are normal. There is trace tricuspid regurgitation. Pulmonic Valve: The pulmonic valve is not well visualized. There is no evidence of pulmonic regurgitation. Pericardium: There is no pericardial effusion. Aorta: The aorta appears normal. Venous: The inferior vena cava appears normal in size. Contrast: Intravenous agitated saline contrast was used to assess intracardiac shunting. Measurements Chambers 2D Name Value Normal Range IVSd (2D) 1.09 cm (0.6 - 1.1) LVPWd (2D) 1.01 cm (0.6 - 1.1) LVIDd (2D) 4.56 cm (3.7 - 5.6) LVIDs (2D) 3.59 cm (2 - 3.8) LV FS (2D) 21.14 % - EF Teichholz (2D) 43.07 % - Ao root diameter (2D) 3.24 cm (2 - 3.7) Volumes/Mass Name Value Normal Range LA ESV SP 4CH (A/L) 37.93 ml - LA ESV SP 2CH (A/L) 41.62 ml - LA ESV BP (A/L) 45.32 ml - LA ESV BP (A/L) index 23.36 ml/m2 - LA ESV SP 4CH (MOD) 36.29 ml - LA ESV SP 2CH (MOD) 37.95 ml - LA ESV BP (MOD) 41.23 ml - LA ESV BP (MOD) index 21.25 ml/m2 - LV EDV SP 4CH (MOD) 116.7 ml - LV ESV SP 4CH (MOD) 47.19 ml - EF SP 4CH (MOD) 59.57 % - LV EDV SP 2CH (MOD) 116.94 ml - LV ESV SP 2CH (MOD) 52.32 ml - EF SP 2CH (MOD) 55.26 % - LV EDV BP 120.41 ml - LV ESV BP 50.4 ml - BP EF (MOD) 58 % - Diastolic/Systolic Function Name Value Normal Range MV E-wave Vmax 0.56 m/sec - MV deceleration time 202.65 msec - MV A-wave Vmax 0.96 m/sec - MV E:A ratio 0.59 ratio - Aortic Valve Name Value Normal Range AV Vmax 1.39 m/sec - AV VTI 25.04 cm - AV peak gradient 7.68 mmHg - AV mean gradient 3.87 mmHg - LVOT diameter 2.02 cm - LVOT Vmax 0.84 m/sec - LVOT VTI 15.67 cm - LVOT peak gradient 2.81 mmHg - LVOT mean gradient 1.37 mmHg - SV LVOT 50.43 ml - LATRICE (continuity Vmax) 1.95 cm2 - LATRICE (continuity VTI) 2.01 cm2 - Ascending Ao 3.18 cm - Tricuspid Valve Name Value Normal Range TR Vmax 1.05 m/sec - TR peak gradient 4.4 mmHg - RAP 3 mmHg - Pulmonic Valve/Qp:Qs Name Value Normal Range PV Vmax 1.12 m/sec - PV VTI 21.8 cm - PV peak gradient 5.03 mmHg - PV mean gradient 2.62 mmHg - RVOT Vmax 0.78 m/sec - RVOT VTI 11.5 cm - RVOT peak gradient 2.44 mmHg - Howard/IV: Voiding Method Bedside Commode IV Catheter Type [Right INT / Saline Lock Antecubital] IV Catheter Type [Left INT / Saline Lock Antecubital] IV Catheter Type [Left Forearm Peripheral IV ] Active Medications - Current Medications Current Medications: Generic Name Dose Route Start Last Admin Trade Name Freq PRN Reason Stop Dose Admin Amlodipine Besylate 5 mg 08/11/19 10:00 08/18/19 09:59 Amlodipine PO 5 mg QDAY JASBIR Administration Atorvastatin Calcium 80 mg 08/11/19 22:00 08/17/19 21:17 Lipitor PO 80 mg QHS JASBIR Administration Bisacodyl 10 mg 08/10/19 22:24 Dulcolax GA QDAY PRN Constipation Clopidogrel Bisulfate 75 mg 08/11/19 10:00 08/18/19 09:58 Plavix PO 75 mg DAILY JASBIR Administration Enoxaparin Sodium 40 mg 08/11/19 10:00 08/18/19 09:59 Enoxaparin SUB-Q 40 mg QAM JASBIR Administration Hydralazine HCl 10 mg 08/10/19 22:29 08/11/19 04:20 Apresoline IV 10 mg Q6H PRN Administration Hypertension Hydralazine HCl 50 mg 08/11/19 09:00 08/18/19 06:37 Apresoline PO 50 mg Q8HR JASBIR Administration Ondansetron HCl 4 mg 08/10/19 22:24 Zofran IV Q8H PRN Nausea And Vomiting Sodium Chloride 10 ml 08/10/19 22:24 08/16/19 21:59 Sodium Chloride Flush Syringe 10 Ml IV 10 ml PRN PRN Administration LINE FLUSH Nutrition/Malnutrition Assess - Dietary Evaluation Nutrition/Malnutrition Findings: Nutrition Notes Start: 08/17/19 13:44 Freq: Status: Active Protocol: Document 08/17/19 13:44 LM (Rec: 08/17/19 13:58 LM [id number]) Nutrition Notes Need for Assessment generated from: LOS Initial or Follow up Assessment Current Diagnosis Diabetes,Hypertension Other Pertinent Diagnosis anxiety/depression Current Diet mechanical soft/consistent CHO Labs/Tests Reviewed Pertinent Medications Reviewed Height 5 ft 6 in Weight 84.6 kg [place] Body Weight (kg) 59.09 BMI 30.1 Weight Status Obese Subjective/Other Information Screen for LOS. Pt stated she needs help opening food items on her tray. Pt stated when she has to open items she feels like she cannot finish all of her food afterwards. Informed pt to have tech help her and informed kitchen of pt 's concern. Pt stated she has not had any wt loss and is unaware of UBW. Pt would like Glucerna. Burn Absent Trauma Absent GI Symptoms None Current % PO Fair (50-74%) Minimum of two criteria No physical signs of malnutrition #1 Nutrition Diagnosis Inadequate oral intake Etiology Pt needing assistance with opening food items As Evidenced by Signs and Symptoms pt with 50% intake Is patient on ventilator? No Is Patient Ambulatory and/or Out of Bed No REE-([facility]-confined to bed) 0770.749 Calculation Used for Recommendations [facility] Additional Notes Protein: 72-86g (1-1.2g/kg using AdjBW 72kg) Fluid: 1 ml/kcal Nutrition Intervention Change Diet Order: Continue Add Supplement/Snack (indicate name/kcal Glucerna daily /protein ) Provides kCal: 220 Provides Protein (gm) 10 Goal #1 Meet at least 75% of energy and protein needs Anticipated Discharge Needs: cardiac/consistent CHO/mech soft Follow-Up By: 08/19/19 Additional Comments F/U for intakes
[2019-08-19] MEDS: hydrALAZINE 25 MG TAB PO SCH ×3 (06:02→22:44)
[2019-08-19] MEDS: ENOXAPARIN 40 MG/0.4 ML INJ SUB-Q SCH (09:42)
[2019-08-19] MEDS: CLOPIDOGREL 75 MG TAB PO SCH (09:43)
[2019-08-19] MEDS: amLODIPine 5 MG TAB PO SCH (09:44)
--- NOTE | 2019-08-19 11:57 | Discharge Summary ---
Providers - Providers Date of Admission: 08/10/19 22:25 Date of discharge: 08/19/19 Attending physician: JUJU MURPHY 08/10/19 Consult to Physician [CONS] Routine Comment: Consulting Provider: CLAU KRUGER Physician Instructions: Reason For Exam: cva 08/10/19 22:25 Occupational Therapy Evaluate and Treat [CONS] Routine Comment: Reason For Exam: Neuro deficits Physical Therapy Evaluation and Treat [CONS] Routine Comment: Reason For Exam: Neuro deficits 08/11/19 10:43 Speech Therapy Evaluation and Treat [CONS] Routine Reason For Exam: swallow eval, Primary care physician: MAINTENANCE HELPER Hospitalization Reason for admission: CVA Condition: Serious Hospital course: 64-year-old woman with a history of hypertension, diabetes, anxiety, depression comes emergency room for evaluation. The patient complained of right side weakness, slurred speech and twisting of her face. She had not taken any antihypertensive in the last 4 months or more [employer]. The patient came to the emergency room, she was outside the window for TPA. Patient was admitted for acute ischemic CVA with right-sided weakness and accelerated hypertension. The patient was treated with Plavix and statin. Patient was seen by neurology in consultation. Hospital course: 08/12/19 Patient presented with right sided weakness. She is diagnosed with acute ischemic stroke. Neurology following. PT to see to determine disposition. 08/13/19 patient with acute ischemic stroke with right sided weakness. PT recommends acute rehab. She is medically stable for discharge 08/14/19 Patient with acute stroke. Awaiting transfer to Acute rehab. 08/15/19 patient with acute ischemic stroke. She is medically stable. Awaiting t ransfer to Acute rehab. 08/16/19 Patient medically stable. Awaiting acute rehab placement. Covid-19 test done result pending. 08/17/19 Patient with acute ischemic stroke. She is medically stable. Awaiting placement acute rehab. 08/18/2019 Patient with acute ischemic stroke. She is medically stable. Awaiting placement acute rehab. 08/19/2019. Case management reports that [facility] [phone] has accepted the patient but no bed availability. Patient will be discharged when bed available. Dedicated discharge time 35 minutes. Disposition: [id number]AC[facility] Time spent for discharge: 35 - Discharge Diagnoses (1) Ischemic cerebrovascular accident (CVA) Status: Acute (2) Accelerated hypertension Status: Acute Core Measure Documentation - Palliative Care Palliative Care/ Comfort Measures: Not Applicable - Core Measures Any of the following diagnoses?: stroke - Stroke Discharge Requirements Statin for LDL = or >70 mg/dl on DC: Yes Anticoag for atrial fib/atrial flutter: Not Applicable Antithrombotic for ischemic stroke: Yes Exam - Constitutional Vitals: Temp Pulse Resp BP Pulse Ox 98.3 F 80 20 126/62 94 08/19/19 09:34 08/19/19 09:44 08/19/19 09:34 08/19/19 09:44 08/19/19 09:34 General appearance: Present: no acute distress, well-nourished - EENT Eyes: Present: PERRL ENT: hearing intact, clear oral mucosa - Neck Neck: Present: supple, normal ROM - Respiratory Respiratory effort: normal Respiratory: bilateral: CTA - Cardiovascular Heart Sounds: Present: S1 & S2. Absent: rub, click - Extremities Extremities: pulses symmetrical, No edema Peripheral Pulses: within normal limits - Abdominal General gastrointestinal: Present: soft, non-tender, non-distended, normal bowel sounds Female genitourinary: Present: normal - Integumentary Integumentary: Present: clear, warm, dry - Musculoskeletal Musculoskeletal: gait normal, strength equal bilaterally - Psychiatric Psychiatric: appropriate mood/affect, intact judgment & insight - Neurologic Neurologic: CNII-XII intact, moves all extremities Plan Activity: advance as tolerated Weight Bearing Status: Weight Bear as Tolerated Follow up with: PRIMARY CAREMD [Primary Care Provider] - 3-5 Days
[2019-08-20] MEDS: hydrALAZINE 25 MG TAB PO SCH ×2 (06:33→13:01)
--- NOTE | 2019-08-20 08:48 | Progress Note ---
Assessment and Plan Assessment and plan: Acute ischemic stroke with right sided weakness Cont Plavix, statin IV hydralazine as needed for blood pressure control Consulted neurology, patient seen by Dr. Chun Physical and Occupational Therapy consulted Hypertensive urgency Continue Norvasc IV hydralazine prn for blood pressure control Diabetes mellitus type 2 Check fingersticks, start sliding scale Anxiety/depression, stable DVT prophylaxis 08/12/19 Patient presented with right sided weakness. She is diagnosed with acute ischemic stroke. Neurology following. PT to see to determine disposition. 08/13/19 patient with acute ischemic stroke with right sided weakness. PT recommends acute rehab. She is medically stable for discharge 08/14/19 Patient with acute stroke. Awaiting transfer to Acute rehab. 08/15/19 patient with acute ischemic stroke. She is medically stable. Awaiting transfer to Acute rehab. 08/16/19 Patient medically stable. Awaiting acute rehab placement. Covid-19 test done result pending. 08/17/19 Patient with acute ischemic stroke. She is medically stable. Awaiting placement acute rehab. 08/18/2019 Patient with acute ischemic stroke. She is medically stable. Awaiting placement acute rehab. 08/19/2019. Patient with acute ischemic stroke. She is medically stable. Awaiting placement acute rehab. - Patient Problems (1) Ischemic cerebrovascular accident (CVA) Current Visit: Yes Status: Acute (2) Accelerated hypertension Current Visit: Yes Status: Acute History Interval history: No new issues overnight. Hospitalist Physical - Constitutional Vitals: Temp Pulse Resp BP Pulse Ox 98.2 F 82 18 130/64 96 08/20/19 03:40 08/20/19 06:33 08/20/19 03:40 08/20/19 06:33 08/20/19 03:40 General appearance: Present: no acute distress, well-nourished - EENT Eyes: Present: PERRL, EOM intact ENT: hearing intact, clear oral mucosa, dentition normal - Neck Neck: Present: supple, normal ROM - Respiratory Respiratory effort: normal Respiratory: bilateral: CTA - Cardiovascular Rhythm: regular Heart Sounds: Present: S1 & S2. Absent: gallop, rub - Extremities Extremities: no ischemia, No edema, Full ROM - Abdominal General gastrointestinal: soft, non-tender, non-distended, normal bowel sounds - Integumentary Integumentary: Present: clear, warm, dry - Neurologic Neurologic: CNII-XII intact, moves all extremities Results - Labs CBC & Chem 7: 08/18/19 04:05 08/18/19 04:05 Labs: Laboratory Last Values WBC 8.2 K/mm3 (4.5-11.0) 08/18/19 04:05 RBC 4.77 M/mm3 (3.65-5.03) 08/18/19 04:05 Hgb 13.3 gm/dl (10.1-14.3) 08/18/19 04:05 Hct 39.8 % (30.3-42.9) 08/18/19 04:05 MCV 84 fl (79-97) 08/18/19 04:05 MCH 28 pg (28-32) 08/18/19 04:05 MCHC 34 % (30-34) 08/18/19 04:05 RDW 14.6 % (13.2-15.2) 08/18/19 04:05 Plt Count 236 K/mm3 (140-440) 08/18/19 04:05 Lymph % (Auto) 31.4 % (13.4-35.0) 08/10/19 19:15 [place] % (Auto) 5.2 % (0.0-7.3) 08/10/19 19:15 Eos % (Auto) 0.5 % (0.0-4.3) 08/10/19 19:15 Baso % (Auto) 0.4 % (0.0-1.8) 08/10/19 19:15 Lymph # 2.8 K/mm3 (1.2-5.4) 08/10/19 19:15 [place] # 0.5 K/mm3 (0.0-0.8) 08/10/19 19:15 Eos # 0.0 K/mm3 (0.0-0.4) 08/10/19 19:15 Baso # 0.0 K/mm3 (0.0-0.1) 08/10/19 19:15 Seg Neutrophils % 62.5 % (40.0-70.0) 08/10/19 19:15 Seg Neutrophils # 5.6 K/mm3 (1.8-7.7) 08/10/19 19:15 PT 12.8 Sec. (12.2-14.9) 08/10/19 19:15 INR 0.95 (0.87-1.13) 08/10/19 19:15 APTT 24.5 Sec. (24.2-36.6) 08/10/19 19:15 Thrombin Time 18.6 Sec. (15.1-19.6) 08/10/19 19:15 Sodium 136 mmol/L (137-145) L 08/18/19 04:05 Potassium 3.6 mmol/L (3.6-5.0) 08/18/19 04:05 Chloride 101.4 mmol/L (98-107) 08/18/19 04:05 Carbon Dioxide 22 mmol/L (22-30) 08/18/19 04:05 Anion Gap 16 mmol/L 08/18/19 04:05 BUN 25 mg/dL (7-17) H 08/18/19 04:05 Creatinine 1.0 mg/dL (0.7-1.2) 08/18/19 04:05 Estimated GFR > 60 ml/min 08/18/19 04:05 BUN/Creatinine Ratio 25 % 08/18/19 04:05 Glucose 133 mg/dL (65-100) H 08/18/19 04:05 POC Glucose 108 (70-105) H 08/16/19 21:37 Calcium 8.7 mg/dL (8.4-10.2) 08/18/19 04:05 Total Bilirubin 0.30 mg/dL (0.1-1.2) 08/10/19 19:15 AST 26 units/L (5-40) 08/10/19 19:15 ALT 17 units/L (7-56) 08/10/19 19:15 Alkaline Phosphatase 56 units/L (35-129) 08/10/19 19:15 Ammonia 28.0 umol/L (25-60) 08/10/19 19:15 Total Creatine Kinase 87 units/L (30-135) 08/10/19 19:15 CK-MB (CK-2) 1.5 ng/mL (0.0-4.0) 08/10/19 19:15 CK-MB (CK-2) Rel Index 1.7 (0-4) 08/10/19 19:15 Troponin T < 0.010 ng/mL (0.00-0.029) 08/10/19 19:15 Total Protein 7.5 g/dL (6.3-8.2) 08/10/19 19:15 Albumin 2.8 g/dL (3.9-5) L 08/10/19 19:15 Albumin/Globulin Ratio 0.6 % 08/10/19 19:15 Triglycerides 89 mg/dL (2-149) 08/11/19 05:17 Cholesterol 238 mg/dL (50-199) H 08/11/19 05:17 LDL Cholesterol Direct 188 mg/dL (50-130) H 08/11/19 05:17 HDL Cholesterol 43 mg/dL (40-59) 08/11/19 05:17 Cholesterol/HDL Ratio 5.53 % 08/11/19 05:17 TSH 2.390 mlU/mL (0.270-4.200) 08/10/19 19:15 Urine Color Yellow (Yellow) 08/10/19 04:30 Urine Turbidity Clear (Clear) 08/10/19 04:30 Urine pH 7.0 (5.0-7.0) 08/10/19 04:30 Ur Specific [place] 1.049 (1.003-1.030) H 08/10/19 04:30 Urine Protein >500 mg/dL (Negative) 08/10/19 04:30 Urine Glucose (UA) Neg mg/dL (Negative) 08/10/19 04:30 Urine Ketones Tr mg/dL (Negative) 08/10/19 04:30 Urine Blood Neg (Negative) 08/10/19 04:30 Urine Nitrite Neg (Negative) 08/10/19 04:30 Urine Bilirubin Neg (Negative) 08/10/19 04:30 Urine Urobilinogen < 2.0 mg/dL (<2.0) 08/10/19 04:30 Ur Leukocyte Esterase Neg (Negative) 08/10/19 04:30 Urine WBC (Auto) 3.0 /HPF (0.0-6.0) 08/10/19 04:30 Urine RBC (Auto) 6.0 /HPF (0.0-6.0) 08/10/19 04:30 U Epithel Cells (Auto) 2.0 /HPF (0-13.0) 08/10/19 04:30 Urine Bacteria (Auto) 1+ /HPF (Negative) 08/10/19 04:30 Urine Mucus Few /HPF 08/10/19 04:30 Urine Opiates Screen Presumptive negative 08/10/19 04:30 Urine Methadone Screen Presumptive negative 08/10/19 04:30 Ur Barbiturates Screen Presumptive negative 08/10/19 04:30 Ur Phencyclidine Scrn Presumptive negative 08/10/19 04:30 Ur Amphetamines Screen Presumptive negative 08/10/19 04:30 U Benzodiazepines Scrn Presumptive negative 08/10/19 04:30 Urine Cocaine Screen Presumptive negative 08/10/19 04:30 U Marijuana (THC) Screen Presumptive negative 08/10/19 04:30 Drugs of Abuse Note Disclamer 08/10/19 04:30 Plasma/Serum Alcohol < 0.01 % (0-0.07) 08/10/19 19:15 Coronavirus (PCR) Negative (Negative) 08/14/19 Unknown Blood Type AB POSITIVE 08/10/19 19:15 Antibody Screen Negative 08/10/19 19:15 - Diagnostic Impressions Diagnostic Impressions: Echocardiogram 08/10/19 22:26 Transthoracic Echocardiogram Indication: Stroke BP: 192/100 HR: 76 Conclusions *Global left ventricular wall motion and contractility are within normal limits. *The estimated ejection fraction is 55-60%. *Abnormal left ventricular diastolic filling is observed, consistent with impaired relaxation. *The right ventricular global systolic function is normal. *No atrial septal defected is demonstrated by agitated saline contrast. *There is no evidence of aortic regurgitation. *There is no evidence of mitral regurgitation. *There is trace tricuspid regurgitation. *There is no evidence of pulmonic regurgitation. Findings Left Ventricle: The left ventricular chamber size is normal. Global left ventricular wall motion and contractility are within normal limits. Global left ventricular systolic function is normal. The estimated ejection fraction is 55-60%. Abnormal left ventricular diastolic filling is observed, consistent with impaired relaxation. Left Atrium: The left atrial chamber size is normal. Right Ventricle: The right ventricular cavity size is normal. The right ventricular global systolic function is normal. Right Atrium: The right atrial cavity size is normal. No atrial septal defected is demonstrated by agitated saline contrast. Aortic Valve: The aortic valve structure is normal. There is no evidence of aortic regurgitation. Mitral Valve: The mitral valve leaflets are mildly thickened. There is no evidence of mitral regurgitation. Tricuspid Valve: The tricuspid valve leaflets are normal. There is trace tricuspid regurgitation. Pulmonic Valve: The pulmonic valve is not well visualized. There is no evidence of pulmonic regurgitation. Pericardium: There is no pericardial effusion. Aorta: The aorta appears normal. Venous: The inferior vena cava appears normal in size. Contrast: Intravenous agitated saline contrast was used to assess intracardiac shunting. Measurements Chambers 2D Name Value Normal Range IVSd (2D) 1.09 cm (0.6 - 1.1) LVPWd (2D) 1.01 cm (0.6 - 1.1) LVIDd (2D) 4.56 cm (3.7 - 5.6) LVIDs (2D) 3.59 cm (2 - 3.8) LV FS (2D) 21.14 % - EF Teichholz (2D) 43.07 % - Ao root diameter (2D) 3.24 cm (2 - 3.7) Volumes/Mass Name Value Normal Range LA ESV SP 4CH (A/L) 37.93 ml - LA ESV SP 2CH (A/L) 41.62 ml - LA ESV BP (A/L) 45.32 ml - LA ESV BP (A/L) index 23.36 ml/m2 - LA ESV SP 4CH (MOD) 36.29 ml - LA ESV SP 2CH (MOD) 37.95 ml - LA ESV BP (MOD) 41.23 ml - LA ESV BP (MOD) index 21.25 ml/m2 - LV EDV SP 4CH (MOD) 116.7 ml - LV ESV SP 4CH (MOD) 47.19 ml - EF SP 4CH (MOD) 59.57 % - LV EDV SP 2CH (MOD) 116.94 ml - LV ESV SP 2CH (MOD) 52.32 ml - EF SP 2CH (MOD) 55.26 % - LV EDV BP 120.41 ml - LV ESV BP 50.4 ml - BP EF (MOD) 58 % - Diastolic/Systolic Function Name Value Normal Range MV E-wave Vmax 0.56 m/sec - MV deceleration time 202.65 msec - MV A-wave Vmax 0.96 m/sec - MV E:A ratio 0.59 ratio - Aortic Valve Name Value Normal Range AV Vmax 1.39 m/sec - AV VTI 25.04 cm - AV peak gradient 7.68 mmHg - AV mean gradient 3.87 mmHg - LVOT diameter 2.02 cm - LVOT Vmax 0.84 m/sec - LVOT VTI 15.67 cm - LVOT peak gradient 2.81 mmHg - LVOT mean gradient 1.37 mmHg - SV LVOT 50.43 ml - LATRICE (continuity Vmax) 1.95 cm2 - LATRICE (continuity VTI) 2.01 cm2 - Ascending Ao 3.18 cm - Tricuspid Valve Name Value Normal Range TR Vmax 1.05 m/sec - TR peak gradient 4.4 mmHg - RAP 3 mmHg - Pulmonic Valve/Qp:Qs Name Value Normal Range PV Vmax 1.12 m/sec - PV VTI 21.8 cm - PV peak gradient 5.03 mmHg - PV mean gradient 2.62 mmHg - RVOT Vmax 0.78 m/sec - RVOT VTI 11.5 cm - RVOT peak gradient 2.44 mmHg - Howard/IV: Voiding Method External Female Catheter IV Catheter Type [Right INT / Saline Lock Antecubital] IV Catheter Type [Left INT / Saline Lock Antecubital] IV Catheter Type [Left Forearm Peripheral IV ] Active Medications - Current Medications Current Medications: Generic Name Dose Route Start Last Admin Trade Name Freq PRN Reason Stop Dose Admin Amlodipine Besylate 5 mg 08/11/19 10:00 08/19/19 09:44 Amlodipine PO 5 mg QDAY JASBIR Administration Atorvastatin Calcium 80 mg 08/11/19 22:00 08/19/19 22:44 Lipitor PO 80 mg QHS JASBIR Administration Bisacodyl 10 mg 08/10/19 22:24 Dulcolax ND QDAY PRN Constipation Clopidogrel Bisulfate 75 mg 08/11/19 10:00 08/19/19 09:43 Plavix PO 75 mg DAILY JASBIR Administration Enoxaparin Sodium 40 mg 08/11/19 10:00 08/19/19 09:42 Enoxaparin SUB-Q 40 mg QAM JASBIR Administration Hydralazine HCl 10 mg 08/10/19 22:29 08/11/19 04:20 Apresoline IV 10 mg Q6H PRN Administration Hypertension Hydralazine HCl 50 mg 08/11/19 09:00 08/20/19 06:33 Apresoline PO 50 mg Q8HR JASBIR Administration Ondansetron HCl 4 mg 08/10/19 22:24 Zofran IV Q8H PRN Nausea And Vomiting Sodium Chloride 10 ml 08/10/19 22:24 08/16/19 21:59 Sodium Chloride Flush Syringe 10 Ml IV 10 ml PRN PRN Administration LINE FLUSH Nutrition/Malnutrition Assess - Dietary Evaluation Nutrition/Malnutrition Findings: Nutrition Notes Start: 08/17/19 13:44 Freq: Status: Active Protocol: Document 08/19/19 16:15 [facility] (Rec: 08/19/19 16:16 [facility] [id number]) Nutrition Notes Initial or Follow up Brief Note Current Diet Consistent CHO mech soft + Glucerna once daily Subjective/Other Information Pt consumed 75% of breakfast this am. Nutrition Intervention Follow-Up By: 08/21/19 Additional Comments F/U: intakes (meals/ONS)
[2019-08-20] MEDS: ENOXAPARIN 40 MG/0.4 ML INJ SUB-Q SCH (10:01)
[2019-08-20] MEDS: CLOPIDOGREL 75 MG TAB PO SCH (10:01)
[2019-08-20] MEDS: amLODIPine 5 MG TAB PO SCH (10:01)
[2019-08-20 12:34] VITALS: BP 134/64
== END 2019-08-20 16:30 | DRG 65 ==
LOC: ED 19:04 → 4A 22:25
PROVIDERS: ADMIT Internal Medicine; ATTEND Hospitalist
DX: I63.9 Cerebral infarction, unspecified (principal); G81.91 Hemiplegia, unspecified affecting right dominant side; I16.0 Hypertensive urgency; E11.9 Type 2 diabetes mellitus without complications; Z88.1 Allergy status to other antibiotic agents; Z88.6 Allergy status to analgesic agent; F17.210 Nicotine dependence, cigarettes, uncomplicated; Z71.6 Tobacco abuse counseling; I10 Essential (primary) hypertension; F41.9 Anxiety disorder, unspecified; F41.8 Other specified anxiety disorders; M19.90 Unspecified osteoarthritis, unspecified site; Z90.722 Acquired absence of ovaries, bilateral; Z82.49 Family history of ischemic heart disease and other diseases of the circulatory system
CPT/HCPCS: 36415; 70450; 70496; 70498; 70551; 80048; 80053; 80061; 80307; 80320; 81001; 82140; 82550; 82553; 82962; 84443; 84484; 85025; 85027; 85610; 85670; 85730; 86850; 86900; 86901; 93005; 93306; 99406; G0378; A9270-GY; G0480; G0515-GN; J0360; J1650; Q9967; U0003